=== PATIENT | female | born 1995 | race African-American/Black ===

== ENCOUNTER → 2017-03-03 | Outpatient (CLI) | payer OTHER ==
[2016-01-25 14:57] VITALS: BP 126/68
[~2017-03-03] MED LIST: CIPR500T94 PO; PHEN100T91 PO; SULF1TAB24 PO
--- NOTE | 2017-03-03 14:20 | RAD ---
OB ultrasound History: Supervision of first normal . Comparison: None. Findings: There is a single intrauterine gestation in breech presentation. The placenta is anterior in location without evidence of placenta previa. The amount of amniotic fluid appears appropriate. Amniotic fluid index is 18.5 cm. Cervix is not well visualized. Biometric data is as follows: BPD = 6.19 cm for 25 weeks 1 days. HC = 22.72 cm for 24 weeks 5 days. AC = 20.17 cm for 24 weeks 6 days. FL = 4.50 cm for 24 weeks 6 days. HC/AC ratio = 1.13, within normal limits. Overall, the average ultrasound age age is 24 weeks 6 days for an estimated date of delivery of 06/17/2017. The estimated date of delivery provided by the last menstrual period is 06/26/2017. Estimated weight is 740 +/- 110 grams which is at 61st percentile. A 4 chamber heart is identified with positive cardiac activity. Heart is appropriate in size and location. The estimated heart rate is 152 beats per minute. Bilateral upper and lower extremities are identified. There is a three-vessel cord with cord insertion visualized. stomach and urinary bladder are identified. Both kidneys are seen. The spine and brain are unremarkable. No gross anatomic abnormalities are identified. gender appears male. Impression: 1. Single live intrauterine gestation in breech presentation with average ultrasound age of 24 weeks 6 days. No anatomic abnormalities are identified.
== END | disposition home or self-care (01) ==
LOC: US 12:03
PROVIDERS: ATTEND Obstetrics & Gynecology
DX: O09.90 Supervision of high risk pregnancy, unspecified, unspecified trimester (principal); O26.849 Uterine size-date discrepancy, unspecified trimester; Z3A.24 24 weeks gestation of pregnancy
CPT/HCPCS: 76805

== ENCOUNTER 2017-04-11 17:38 | Observation (INO) | payer OTHER ==
[2016-01-25 14:57] VITALS: BP 126/68
[~2017-04-11] VITALS: Ht 171.4 cm; Wt 104.3 kg
== END 2017-04-11 18:55 | disposition home or self-care (01) ==
LOC: 3 SO LND 17:38
PROVIDERS: ADMIT Obstetrics & Gynecology; ATTEND Obstetrics & Gynecology
DX: O26.893 Other specified pregnancy related conditions, third trimester (principal); R10.2 Pelvic and perineal pain; M54.9 Dorsalgia, unspecified; Z3A.29 29 weeks gestation of pregnancy
CPT/HCPCS: G0378; G0379

== ENCOUNTER 2017-05-17 06:07 | Observation (INO) | payer OTHER ==
[2016-01-25 14:57] VITALS: BP 126/68
[~2017-05-17 06:07] MED LIST changes: +PHEN-443 PO; -PHEN100T91 PO
[2017-05-17] MEDS ORDERED: IV RINGERS,LACTATED 1000ML 1,000 ML IV SCH (06:11)
[2017-05-17 06:50] LABS: BARBITURATES NEG (NEG); BENZODIAZEPINES NEG (NEG); CANNABINOIDS NEG (NEG); COCAINE NEG (NEG); METHADONE NEG (NEG); OPIATES NEG (NEG); PHENCYCLIDINE NEG (NEG)
[2017-05-17 07:29] LABS: BILIRUBIN,URINE NEGATIVE (NEG); GLUCOSE,URINE NEGATIVE (NEG); NITRITE,URINE NEGATIVE (NEG); PH,URINE 6.5; PROTEIN,URINE NEGATIVE (NEG-TRACE); UROBILINOGEN,URINE 0.2 mg/dL (0.2 mg/dL)
[2017-05-17 08:08] LABS: BACTERIA,URINE 0 /HPF (0-FEW); RBC,URINE 0 /HPF (0-2); SQUAMOUS EPITHELIAL CELL,UR FEW /LPF; WBC,URINE 0 /HPF (0-4)
== END 2017-05-17 08:51 | disposition home or self-care (01) ==
LOC: INTOOBSV 06:07 → 3 SO LND 06:07
PROVIDERS: ADMIT Obstetrics & Gynecology; ATTEND Obstetrics & Gynecology
DX: O26.893 Other specified pregnancy related conditions, third trimester (principal); M54.9 Dorsalgia, unspecified; R07.9 Chest pain, unspecified; M79.606 Pain in leg, unspecified; Z3A.34 34 weeks gestation of pregnancy
CPT/HCPCS: 81001; G0378; G0379; G0481

== ENCOUNTER 2018-02-23 11:15 | Emergency (ER) | payer BC, OTHER ==
[2018-02-23 11:38] LABS: URINE HCG POC HCG POSITIVE (Negative)
[2018-02-23 12:22] LABS: ADD MAN DIFF? NO
[2018-02-23 12:26] LABS: BASO # 0.1 x10^3/uL (0.0-0.2); BASO % 1 % (0-3); EOS # 0.1 x10^3/uL (0.0-0.7); EOS % 1 % (0-3); HEMATOCRIT 41.1 % (36.0-47.0); HEMOGLOBIN 13.6 g/dL (12.0-15.5); LYMPH # 1.9 x10^3/uL (1.0-4.8); LYMPH % 24 % (24-48); MEAN CORPUSCULAR HEMOGLOBIN 29 pg (25-35); MEAN CORPUSCULAR HGB CONC 33 g/dL (31-37); MEAN CORPUSCULAR VOLUME 87 fL (79-100); MONO # 0.5 x10^3/uL (0.0-1.1); MONO % 7 % (0-9); NEUT # 5.5 x10^3uL (1.8-7.7); NEUT % 68 % (31-73); PLATELET COUNT 333 x10^3/uL (140-400); RED BLOOD COUNT 4.75 x10^6/uL (3.50-5.40); RED CELL DISTRIBUTION WIDTH 15.1 % (11.5-14.5); WHITE BLOOD COUNT 8.1 x10^3/uL (4.0-11.0)
== END 2018-02-23 14:28 | disposition home or self-care (01) ==
LOC: ER 11:15
DX: O20.0 Threatened abortion (principal); O99.340 Other mental disorders complicating pregnancy, unspecified trimester; F32.9 Major depressive disorder, single episode, unspecified; O99.331 Smoking (tobacco) complicating pregnancy, first trimester; F17.210 Nicotine dependence, cigarettes, uncomplicated; Z3A.01 Less than 8 weeks gestation of pregnancy
CPT/HCPCS: 36415; 76801; 76817; 81025; 84702; 85025; 99285-25

== ENCOUNTER 2018-03-02 21:01 | Emergency (ER) | payer BC ==
[2018-03-02 21:15] LABS: URINE HCG POC HCG POSITIVE (Negative)
[2018-03-02 21:22] LABS: BILIRUBIN,URINE NEGATIVE (NEG); CLARITY,URINE CLOUDY; COLOR,URINE YELLOW; GLUCOSE,URINE NEGATIVE (NEG); NITRITE,URINE NEGATIVE (NEG); PH,URINE 6.5; PROTEIN,URINE NEGATIVE (NEG-TRACE)
[2018-03-02 21:27] LABS: BACTERIA,URINE MANY /HPF (0-FEW); RBC,URINE 0 /HPF (0-2); SQUAMOUS EPITHELIAL CELL,UR MANY /LPF; TRICHOMONAS,URINE PRESENT; WBC,URINE 20-40 /HPF (0-4)
[2018-03-02 21:28] LABS: BARBITURATES NEG (NEG); BENZODIAZEPINES NEG (NEG); CANNABINOIDS POS (NEG); COCAINE NEG (NEG); METHADONE NEG (NEG); OPIATES NEG (NEG); PHENCYCLIDINE NEG (NEG)
[2018-03-02 21:31] LABS: AMPHETAMINE/METHAMPHETAMINE NEG (NEG); ETHANOL, URINE NEG (NEG)
[2018-03-02 21:47] LABS: ADD MAN DIFF? NO
[2018-03-02 21:49] LABS: BASO # 0.1 x10^3/uL (0.0-0.2); BASO % 1 % (0-3); EOS # 0.1 x10^3/uL (0.0-0.7); EOS % 1 % (0-3); HEMATOCRIT 40.7 % (36.0-47.0); HEMOGLOBIN 13.5 g/dL (12.0-15.5); LYMPH # 2.7 x10^3/uL (1.0-4.8); LYMPH % 25 % (24-48); MEAN CORPUSCULAR HEMOGLOBIN 29 pg (25-35); MEAN CORPUSCULAR HGB CONC 33 g/dL (31-37); MEAN CORPUSCULAR VOLUME 87 fL (79-100); MONO # 0.9 x10^3/uL (0.0-1.1); MONO % 9 % (0-9); NEUT % 65 % (31-73); PLATELET COUNT 308 x10^3/uL (140-400); RED BLOOD COUNT 4.67 x10^6/uL (3.50-5.40); RED CELL DISTRIBUTION WIDTH 14.6 % (11.5-14.5); WHITE BLOOD COUNT 10.9 x10^3/uL (4.0-11.0)
[2018-03-02 22:01] LABS: ANION GAP 10 (6-14); BLOOD UREA NITROGEN 5 mg/dL (7-20); BUN/CREATININE RATIO 7 (6-20); CALCIUM 9.3 mg/dL (8.5-10.1); CARBON DIOXIDE 25 mmol/L (21-32); CHLORIDE 103 mmol/L (98-107); CREATININE 0.7 mg/dL (0.6-1.0); GFR 125.5; GLUCOSE 77 mg/dL (70-99); POTASSIUM 3.6 mmol/L (3.5-5.1); SODIUM 138 mmol/L (136-145)
[2018-03-02 22:05] LABS: ACETAMIN < 2 mcg/ml (10-30); ETHANOL < 10 mg/dL (0-10); SALIC < 2.8 mg/dL (2.8-20.0)
[2018-03-02 22:11] LABS: ALBUMIN 3.6 g/dL (3.4-5.0); ALK PHOS 81 U/L (46-116); ALT (SGPT) 21 U/L (14-59); AST (SGOT) 17 U/L (15-37); TOTAL BILIRUBIN 0.4 mg/dL (0.2-1.0); TOTAL PROTEIN 7.3 g/dL (6.4-8.2)
[2018-03-02 22:13] LABS: THYROID STIM HORMONE (TSH) 1.486 uIU/mL (0.358-3.74)
[2018-03-03] MEDS: ONDANSETRON ODT 4 MG TAB.RAPDIS. PO (00:03)
[2018-03-03] MEDS: metroNIDAZOLE 500 MG TABLET PO (00:03)
== END 2018-03-03 00:15 | disposition short-term general hospital (02) ==
LOC: ER 03-03 00:15
DX: O26.891 Other specified pregnancy related conditions, first trimester (principal); R45.851 Suicidal ideations; O98.311 Other infections with a predominantly sexual mode of transmission complicating pregnancy, first trimester; A59.9 Trichomoniasis, unspecified; O23.41 Unspecified infection of urinary tract in pregnancy, first trimester; O99.341 Other mental disorders complicating pregnancy, first trimester; F41.9 Anxiety disorder, unspecified; F32.9 Major depressive disorder, single episode, unspecified; Z3A.01 Less than 8 weeks gestation of pregnancy
CPT/HCPCS: 36415; 80053; 80307; 80329; 81001; 81025; 84443; 85025; 87086; 99285; G0480; Q0162

== ENCOUNTER 2018-03-14 14:40 | Emergency (ER) | payer BC ==
[2018-03-14] MEDS: IV NORMAL SALINE 1000ML BAG 1,000 ML IV (16:06)
[2018-03-14] MEDS: ONDANSETRON PF 4 MG/2 ML VIAL. IV (16:07)
[2018-03-14] MEDS: fentaNYL PF VIAL 100 MCG/2 ML VIAL IV (16:08)
[2018-03-14 16:14] LABS: ADD MAN DIFF? NO
[2018-03-14 16:16] LABS: BASO # 0.1 x10^3/uL (0.0-0.2); BASO % 1 % (0-3); EOS # 0.1 x10^3/uL (0.0-0.7); EOS % 1 % (0-3); HEMATOCRIT 38.3 % (36.0-47.0); HEMOGLOBIN 12.9 g/dL (12.0-15.5); LYMPH % 23 % (24-48); MEAN CORPUSCULAR HEMOGLOBIN 29 pg (25-35); MEAN CORPUSCULAR HGB CONC 34 g/dL (31-37); MEAN CORPUSCULAR VOLUME 86 fL (79-100); MONO % 8 % (0-9); NEUT # 8.8 x10^3uL (1.8-7.7); NEUT % 68 % (31-73); PLATELET COUNT 283 x10^3/uL (140-400); RED BLOOD COUNT 4.44 x10^6/uL (3.50-5.40); RED CELL DISTRIBUTION WIDTH 14.5 % (11.5-14.5)
[2018-03-14 16:22] LABS: BILIRUBIN,URINE NEGATIVE (NEG); CLARITY,URINE CLEAR; COLOR,URINE YELLOW; GLUCOSE,URINE NEGATIVE (NEG); NITRITE,URINE NEGATIVE (NEG); PROTEIN,URINE NEGATIVE (NEG-TRACE); UROBILINOGEN,URINE 0.2 mg/dL (0.2 mg/dL)
[2018-03-14 16:28] LABS: ANION GAP 10 (6-14); BLOOD UREA NITROGEN 6 mg/dL (7-20); BUN/CREATININE RATIO 9 (6-20); CALCIUM 8.8 mg/dL (8.5-10.1); CARBON DIOXIDE 24 mmol/L (21-32); CHLORIDE 104 mmol/L (98-107); CREATININE 0.7 mg/dL (0.6-1.0); GFR 125.5; GLUCOSE 75 mg/dL (70-99); POTASSIUM 3.6 mmol/L (3.5-5.1); SODIUM 138 mmol/L (136-145)
[2018-03-14 16:34] LABS: ALBUMIN 3.2 g/dL (3.4-5.0); ALBUMIN/GLOBULIN RATIO 0.9 (1.0-1.7); ALK PHOS 80 U/L (46-116); ALT (SGPT) 22 U/L (14-59); AST (SGOT) 12 U/L (15-37); TOTAL BILIRUBIN 0.3 mg/dL (0.2-1.0); TOTAL PROTEIN 6.9 g/dL (6.4-8.2)
[2018-03-14 16:38] LABS: BACTERIA,URINE MANY /HPF (0-FEW); RBC,URINE 0 /HPF (0-2); SQUAMOUS EPITHELIAL CELL,UR MOD /LPF
== END 2018-03-14 19:44 | disposition home or self-care (01) ==
LOC: ER 14:40
DX: O26.891 Other specified pregnancy related conditions, first trimester (principal); R10.31 Right lower quadrant pain; R11.0 Nausea; O99.341 Other mental disorders complicating pregnancy, first trimester; F41.9 Anxiety disorder, unspecified; F32.9 Major depressive disorder, single episode, unspecified; O99.321 Drug use complicating pregnancy, first trimester; F12.10 Cannabis abuse, uncomplicated; Z3A.08 8 weeks gestation of pregnancy
CPT/HCPCS: 36415; 76705; 76801; 76817; 80053; 81001; 85025; 87086; 96361; 96374; 96375; 99285-25; J2405; J3010; J7030

== ENCOUNTER 2018-03-17 09:12 | Emergency (ER) | payer BC ==
[2018-03-17] MEDS ORDERED: 0.9 % SODIUM CHLORIDE 10 ML DISP.SYRIN. IV (10:15)
[2018-03-17 10:50] LABS: POC GLUCOSE 79 mg/dL (70-99)
[2018-03-17] MEDS: IV NORMAL SALINE 500ML BAG 500 ML IV (10:52)
[2018-03-17] MEDS: ONDANSETRON PF 4 MG/2 ML VIAL. IV (10:53)
[2018-03-17 11:00] LABS: ADD MAN DIFF? NO
[2018-03-17 11:06] LABS: BASO % 0 % (0-3); EOS # 0.1 x10^3/uL (0.0-0.7); EOS % 1 % (0-3); HEMATOCRIT 39.9 % (36.0-47.0); HEMOGLOBIN 13.2 g/dL (12.0-15.5); LYMPH % 19 % (24-48); MEAN CORPUSCULAR HEMOGLOBIN 29 pg (25-35); MEAN CORPUSCULAR HGB CONC 33 g/dL (31-37); MEAN CORPUSCULAR VOLUME 87 fL (79-100); MONO # 0.9 x10^3/uL (0.0-1.1); MONO % 9 % (0-9); NEUT # 7.2 x10^3uL (1.8-7.7); NEUT % 71 % (31-73); PLATELET COUNT 292 x10^3/uL (140-400); RED BLOOD COUNT 4.58 x10^6/uL (3.50-5.40); RED CELL DISTRIBUTION WIDTH 14.4 % (11.5-14.5); WHITE BLOOD COUNT 10.1 x10^3/uL (4.0-11.0)
[2018-03-17 11:24] LABS: ANION GAP 7 (6-14); BLOOD UREA NITROGEN 6 mg/dL (7-20); BUN/CREATININE RATIO 12 (6-20); CALCIUM 8.8 mg/dL (8.5-10.1); CARBON DIOXIDE 26 mmol/L (21-32); CHLORIDE 106 mmol/L (98-107); CREATININE 0.5 mg/dL (0.6-1.0); GLUCOSE 58 mg/dL (70-99); POTASSIUM 3.5 mmol/L (3.5-5.1); SODIUM 139 mmol/L (136-145)
[2018-03-17 11:30] LABS: ALBUMIN 3.2 g/dL (3.4-5.0); ALBUMIN/GLOBULIN RATIO 0.8 (1.0-1.7); ALK PHOS 81 U/L (46-116); ALT (SGPT) 22 U/L (14-59); AST (SGOT) 13 U/L (15-37); TOTAL BILIRUBIN 0.2 mg/dL (0.2-1.0)
== END 2018-03-17 13:32 | disposition home or self-care (01) ==
LOC: ER 09:12
DX: O20.0 Threatened abortion (principal); O26.891 Other specified pregnancy related conditions, first trimester; E16.2 Hypoglycemia, unspecified; R42 Dizziness and giddiness; R55 Syncope and collapse; F12.10 Cannabis abuse, uncomplicated; O99.331 Smoking (tobacco) complicating pregnancy, first trimester; F17.210 Nicotine dependence, cigarettes, uncomplicated; Z3A.08 8 weeks gestation of pregnancy
CPT/HCPCS: 36415; 76801; 80053; 82962; 83735; 85025; 93005; 96361; 96374; 99285-25; J2405; J7040

== ENCOUNTER 2018-03-21 16:38 | Emergency (ER) | payer BC ==
[2018-03-21] MEDS: ONDANSETRON ODT 4 MG TAB.RAPDIS. PO (16:59)
[2018-03-21] MEDS ORDERED: LIDOCAINE WITH 8.4% SOD BICARB 3 ML DISP.SYRIN. INJ (17:00)
[2018-03-21] MEDS: HYDROcodone/APAP 5/325MG 1 TAB TABLET PO (17:00)
== END 2018-03-21 18:00 | disposition home or self-care (01) ==
LOC: ER 18:00
DX: O9A.211 Injury, poisoning and certain other consequences of external causes complicating pregnancy, first trimester (principal); O99.341 Other mental disorders complicating pregnancy, first trimester; S82.841A Displaced bimalleolar fracture of right lower leg, initial encounter for closed fracture; O99.321 Drug use complicating pregnancy, first trimester; F12.10 Cannabis abuse, uncomplicated; F32.9 Major depressive disorder, single episode, unspecified; F41.9 Anxiety disorder, unspecified; Z3A.09 9 weeks gestation of pregnancy; W10.9XXA Fall (on) (from) unspecified stairs and steps, initial encounter; Y93.01 Activity, walking, marching and hiking; Y92.89 Other specified places as the place of occurrence of the external cause; Y99.8 Other external cause status
CPT/HCPCS: 29515; 73610; 99284; Q0162

== ENCOUNTER → 2018-06-08 | Outpatient (CLI) | payer OTHER | END | disposition home or self-care (01) | LOC: US 09:54 | DX: O26.842 Uterine size-date discrepancy, second trimester (principal); Z3A.22 22 weeks gestation of pregnancy | CPT/HCPCS: 76805 ==

== ENCOUNTER 2018-08-23 16:54 | Observation (INO) | payer OTHER ==
[~2018-08-23] VITALS: Ht 170.2 cm; Wt 100.2 kg
[~2018-08-23 16:54] MED LIST changes: +ACET325T9 PO; +AMOX1TAB61 PO; +ASPI-612 PO; +CEPH-264 PO; +CHOL100013 PO; +HYDR-2758 PO; +HYDR-971 PO; +HYDR25CA75 PO; +IBUP-1060 PO; +ONDA4TAB10 PO; +PREN1TAB13 PO
[2018-08-23] MEDS ORDERED: IV RINGERS,LACTATED 1000ML 1,000 ML IV SCH (17:10)
[2018-08-23 17:24] LABS: BILIRUBIN,URINE NEGATIVE (NEG); CLARITY,URINE CLEAR; COLOR,URINE YELLOW; NITRITE,URINE NEGATIVE (NEG); PH,URINE 6.5; PROTEIN,URINE NEGATIVE (NEG-TRACE); UROBILINOGEN,URINE 0.2 mg/dL (0.2 mg/dL)
[2018-08-23 17:35] LABS: BACTERIA,URINE MANY /HPF (0-FEW); RBC,URINE RARE /HPF (0-2); SQUAMOUS EPITHELIAL CELL,UR MANY /LPF
[2018-08-23] MEDS ORDERED: hydrOXYzine PAMOATE 25 MG CAPSULE PO PRN (18:30)
[2018-08-23 18:59] LABS: BASO # 0.1 x10^3/uL (0.0-0.2); BASO % 1 % (0-3); EOS # 0.1 x10^3/uL (0.0-0.7); EOS % 1 % (0-3); HEMATOCRIT 30.4 % (36.0-47.0); HEMOGLOBIN 10.1 g/dL (12.0-15.5); LYMPH % 22 % (24-48); MEAN CORPUSCULAR HEMOGLOBIN 27 pg (25-35); MEAN CORPUSCULAR HGB CONC 33 g/dL (31-37); MEAN CORPUSCULAR VOLUME 82 fL (79-100); MONO # 1.2 x10^3/uL (0.0-1.1); MONO % 9 % (0-9); NEUT # 9.7 x10^3uL (1.8-7.7); NEUT % 68 % (31-73); PLATELET COUNT 346 x10^3/uL (140-400); RED BLOOD COUNT 3.71 x10^6/uL (3.50-5.40); RED CELL DISTRIBUTION WIDTH 14.4 % (11.5-14.5); WHITE BLOOD COUNT 14.2 x10^3/uL (4.0-11.0)
[2018-08-23] MEDS: IV DEXTROSE 5%-LACT RINGERS 1,000 ML IV SCH ×2 (18:59→23:53)
[2018-08-23 19:17] LABS: ALBUMIN 2.9 g/dL (3.4-5.0); ALBUMIN/GLOBULIN RATIO 0.8 (1.0-1.7); CALCIUM 8.7 mg/dL (8.5-10.1); CREATININE 0.5 mg/dL (0.6-1.0); POTASSIUM 3.9 mmol/L (3.5-5.1); TOTAL BILIRUBIN 0.1 mg/dL (0.2-1.0); TOTAL PROTEIN 6.6 g/dL (6.4-8.2)
[2018-08-24 07:58] VITALS: BP 107/66
== END 2018-08-24 08:30 | disposition home or self-care (01) ==
LOC: 3 SO LND 16:54
PROVIDERS: ADMIT Obstetrics & Gynecology; ATTEND Obstetrics & Gynecology
DX: O62.9 Abnormality of forces of labor, unspecified (principal); Z3A.31 31 weeks gestation of pregnancy; Z79.899 Other long term (current) drug therapy
CPT/HCPCS: 36415; 80053; 81001; 82731; 85025; 87086; G0378; G0379; Q0177

== ENCOUNTER 2018-09-05 22:17 | Observation (INO) | payer OTHER ==
[2018-09-05] MEDS ORDERED: IV RINGERS,LACTATED 1000ML 1,000 ML IV PRN (22:30)
[2018-09-05 22:46] LABS: BILIRUBIN,URINE NEGATIVE (NEG); CLARITY,URINE CLEAR; COLOR,URINE YELLOW; NITRITE,URINE NEGATIVE (NEG); PROTEIN,URINE NEGATIVE (NEG-TRACE); UROBILINOGEN,URINE 0.2 mg/dL (0.2 mg/dL)
[2018-09-05 22:51] LABS: BACTERIA,URINE MODERATE /HPF (0-FEW)
[2018-09-05 22:52] LABS: AMPHETAMINE/METHAMPHETAMINE NEG (NEG); BARBITURATES NEG (NEG); BENZODIAZEPINES NEG (NEG); CANNABINOIDS NEG (NEG); COCAINE NEG (NEG); METHADONE NEG (NEG); OPIATES NEG (NEG); PHENCYCLIDINE NEG (NEG); SQUAMOUS EPITHELIAL CELL,UR MANY /LPF
== END 2018-09-06 00:14 | disposition home or self-care (01) ==
LOC: 3 SO LND 22:17
PROVIDERS: ADMIT Obstetrics & Gynecology; ATTEND Obstetrics & Gynecology
DX: O62.9 Abnormality of forces of labor, unspecified (principal); O26.893 Other specified pregnancy related conditions, third trimester; M54.9 Dorsalgia, unspecified; Z3A.33 33 weeks gestation of pregnancy
CPT/HCPCS: 80307; 81001; 87086; G0378; G0379; G0479

== ENCOUNTER 2018-09-13 08:26 | Observation (INO) | payer OTHER ==
[2018-09-13 09:04] LABS: BILIRUBIN,URINE NEGATIVE (NEG); CLARITY,URINE CLEAR; COLOR,URINE YELLOW; NITRITE,URINE NEGATIVE (NEG); PH,URINE 6.5; PROTEIN,URINE NEGATIVE (NEG-TRACE); UROBILINOGEN,URINE 0.2 mg/dL (0.2 mg/dL)
[2018-09-13 09:25] LABS: BACTERIA,URINE FEW /HPF (0-FEW); RBC,URINE 0 /HPF (0-2); SQUAMOUS EPITHELIAL CELL,UR MANY /LPF; WBC,URINE 0 /HPF (0-4)
[2018-09-13] MEDS: IV RINGERS,LACTATED 1000ML 1,000 ML IV SCH ×2 (09:48→10:37)
== END 2018-09-13 12:30 | disposition home or self-care (01) ==
LOC: 3 SO LND 08:26
PROVIDERS: ADMIT Obstetrics & Gynecology; ATTEND Obstetrics & Gynecology
DX: O99.89 Other specified diseases and conditions complicating pregnancy, childbirth and the puerperium (principal); M54.9 Dorsalgia, unspecified; Z3A.35 35 weeks gestation of pregnancy
CPT/HCPCS: 81001; 87086; G0378; G0379; J7120

== ENCOUNTER 2018-09-16 14:56 | Observation (INO) | payer OTHER ==
[2018-09-16] MEDS ORDERED: IV RINGERS,LACTATED 1000ML 1,000 ML IV SCH (15:00)
[2018-09-16] MEDS ORDERED: ACETAMINOPHEN 325 MG TABLET. PO PRN (15:00)
[2018-09-16 15:25] LABS: BILIRUBIN,URINE NEGATIVE (NEG); CLARITY,URINE CLEAR; COLOR,URINE YELLOW; NITRITE,URINE NEGATIVE (NEG); PH,URINE 7.5; PROTEIN,URINE NEGATIVE (NEG-TRACE); UROBILINOGEN,URINE 0.2 mg/dL (0.2 mg/dL)
[2018-09-16 16:00] LABS: BACTERIA,URINE MANY /HPF (0-FEW); RBC,URINE OCC /HPF (0-2); SQUAMOUS EPITHELIAL CELL,UR MOD /LPF
[2018-09-16 16:02] LABS: AMNIO PT NEGATIVE
--- NOTE | 2018-09-16 16:23 | RAD ---
EXAM: Obstetrics sonogram. HISTORY: Amniotic fluid index measurement. TECHNIQUE: Sonographic imaging of the abdomen was performed. COMPARISON: 06/08/2018. FINDINGS: There is a single intrauterine fetus in cephalic presentation with a heart rate of 152 bpm. The cervix is not seen. There is body motion. The amniotic fluid index is normal at 11.6 cm. There is a posterior placenta without evidence of placenta previa. The biparietal diameter is 8.61 cm, corresponding with 34 weeks and 5 days. The head circumference is 31.59 cm, corresponding with 35 weeks and 3 days. The abdominal circumference is 31.22 cm, corresponding with 35 weeks and 1 day. The femoral length is 7.00 cm, corresponding with 35 weeks and 6 days. The estimated weight based on ultrasound measurements is 2654 g. The estimated gestational age based on combined ultrasound measurements is 35 weeks and 2 days and the MICHAEL is 10/19/2018. The estimated weight is 38 percentile for gestational age based on LMP of 35 weeks and 6 days. IMPRESSION: 1. Single intrauterine fetus with an estimated gestational age based on ultrasound measurements of 35 weeks and 2 days and heart rate of 152 bpm. 2. Normal BRAYDEN of 11.6 cm. Electronically signed by: Mary Schaffer MD (09/16/2018 4:19 PM) [id number]
== END 2018-09-16 16:25 | disposition home or self-care (01) ==
LOC: 3 SO LND 14:56
PROVIDERS: ADMIT Obstetrics & Gynecology; ATTEND Obstetrics & Gynecology
DX: O42.113 Preterm premature rupture of membranes, onset of labor more than 24 hours following rupture, third trimester (principal); Z3A.35 35 weeks gestation of pregnancy
CPT/HCPCS: 36415; 76815; 81001; 84112; 87086; 87653; G0379

== ENCOUNTER 2018-09-25 18:21 | Observation (INO) | payer OTHER ==
[2018-09-25] MEDS ORDERED: IV RINGERS,LACTATED 1000ML 1,000 ML IV SCH (18:45)
[2018-09-25 19:02] LABS: BILIRUBIN,URINE NEGATIVE (NEG); CLARITY,URINE CLEAR; COLOR,URINE YELLOW; NITRITE,URINE NEGATIVE (NEG); PH,URINE 7.5; PROTEIN,URINE NEGATIVE (NEG-TRACE)
[2018-09-25 19:09] LABS: BARBITURATES NEG (NEG); BENZODIAZEPINES NEG (NEG); CANNABINOIDS NEG (NEG); COCAINE NEG (NEG); METHADONE NEG (NEG); OPIATES NEG (NEG); PHENCYCLIDINE NEG (NEG)
[2018-09-25 19:13] LABS: AMPHETAMINE/METHAMPHETAMINE NEG (NEG)
[2018-09-25 19:14] LABS: BACTERIA,URINE FEW /HPF (0-FEW); RBC,URINE 0 /HPF (0-2); SQUAMOUS EPITHELIAL CELL,UR MOD /LPF
[2018-09-25] MEDS ORDERED: hydrOXYzine PAMOATE 25 MG CAPSULE PO ONE (20:00)
== END 2018-09-25 20:30 | disposition home or self-care (01) ==
LOC: 3 SO LND 18:21
PROVIDERS: ADMIT Obstetrics & Gynecology; ATTEND Obstetrics & Gynecology
DX: O62.9 Abnormality of forces of labor, unspecified (principal); Z3A.36 36 weeks gestation of pregnancy; Z79.899 Other long term (current) drug therapy
CPT/HCPCS: 80307; 81001; 87086; G0378; G0379; Q0177; G0479

== ENCOUNTER 2018-10-07 20:18 | Observation (INO) | payer OTHER ==
[2018-10-07] MEDS ORDERED: IV RINGERS,LACTATED 1000ML 1,000 ML IV SCH (20:22)
[2018-10-07] MEDS ORDERED: ACETAMINOPHEN 325 MG TABLET. PO PRN (20:30)
[2018-10-07] MEDS ORDERED: ONDANSETRON PF 4 MG/2 ML VIAL. IV PRN (20:30)
[2018-10-07 20:51] LABS: BILIRUBIN,URINE NEGATIVE (NEG); CLARITY,URINE CLEAR; COLOR,URINE YELLOW; NITRITE,URINE NEGATIVE (NEG); PROTEIN,URINE NEGATIVE (NEG-TRACE); UROBILINOGEN,URINE 0.2 mg/dL (0.2 mg/dL)
[2018-10-07 20:57] LABS: BARBITURATES NEG (NEG); BENZODIAZEPINES NEG (NEG); CANNABINOIDS NEG (NEG); COCAINE NEG (NEG); METHADONE NEG (NEG); OPIATES NEG (NEG); PHENCYCLIDINE NEG (NEG); RBC,URINE OCC /HPF (0-2)
[2018-10-07 20:58] LABS: BACTERIA,URINE MANY /HPF (0-FEW); SQUAMOUS EPITHELIAL CELL,UR MANY /LPF; YEAST,URINE PRESENT /HPF
[2018-10-07 21:01] LABS: AMPHETAMINE/METHAMPHETAMINE NEG (NEG)
== END 2018-10-07 22:52 | disposition home or self-care (01) ==
LOC: 3 SO LND 20:18
PROVIDERS: ADMIT Obstetrics & Gynecology; ATTEND Obstetrics & Gynecology
DX: O62.9 Abnormality of forces of labor, unspecified (principal); O99.89 Other specified diseases and conditions complicating pregnancy, childbirth and the puerperium; M54.9 Dorsalgia, unspecified; Z3A.38 38 weeks gestation of pregnancy
CPT/HCPCS: 80307; 81001; 87086; G0378; G0379

== ENCOUNTER 2019-02-15 16:35 | Emergency (ER) | payer SELFPAY ==
[2018-10-17 16:00] VITALS: BP 102/58
[~2019-02-15 16:35] MED LIST changes: -HYDR-2758 PO; +HYDR-2761 PO; +HYDR-3164 PO; -HYDR-971 PO; +NAPR-514 PO
== END 2019-02-15 19:00 | disposition left against medical advice (07) ==
LOC: ER 16:35
DX: R10.9 Unspecified abdominal pain (principal); R19.7 Diarrhea, unspecified; R11.11 Vomiting without nausea; Z53.21 Procedure and treatment not carried out due to patient leaving prior to being seen by health care provider

== ENCOUNTER 2019-03-02 11:08 | Emergency (ER) | payer SELFPAY ==
[~2019-03-02] VITALS: Ht 172.7 cm; Wt 99.8 kg
[2019-03-02 11:46] VITALS: BP 112/67
--- NOTE | 2019-03-02 12:22 | RAD ---
EXAM: Right ankle, 3 views. HISTORY: Trauma. COMPARISON: 02/21/2018 FINDINGS: 3 views of the right ankle are obtained. There is internal fixation of healed bimalleolar fractures in anatomic alignment. No acute fracture is seen. The ankle mortise is intact. There is no osteochondral lesion. There is a stable tiny ossicle along the anterior talus. IMPRESSION: No acute osseous finding. Electronically signed by: Mary Schaffer MD (03/02/2019 12:20 PM) [place] [id number]
--- NOTE | 2019-03-02 12:48 | PHYS DOC ---
Past Medical History Past Medical History: Anxiety, Depression Past Surgical History: Other Additional Past Surgical Histo: surgical , oral surgery Alcohol Use: None Drug Use: Marijuana Adult General Chief Complaint Chief Complaint: ANKLE PROBLEM HPI HPI Patient is a 23 year old female with who presents to the ED today complaining of 9 out of 10 right anterior ankle pain that began yesterday after she accidentally dropped a couch on her right ankle while moving it. Patient describes the pain as throbbing and intermittent worse on weight bearing though she is able to ambulate with no difficulties. She states she has not taken anything specifically to relieve the pain. Review of Systems Review of Systems Constitutional: Denies fever or chills [] Musculoskeletal: Reports right ankle pain Integument: Denies rash or skin lesions [] Neurologic: Denies headache, focal weakness or sensory changes [] All other systems were reviewed and found to be within normal limits, except as documented in this note. Allergies Allergies Allergies Coded Allergies Type Severity Reaction Last Updated Verified No Known Drug Allergies 04/25/14 No Physical Exam Physical Exam Constitutional: Well developed, well nourished, no acute distress, non-toxic appearance. [] Skin: Warm, dry, no erythema, no rash. [] Back: No tenderness, no CVA tenderness. [] Extremities: Right medial ankle with an old healed surgical incision. Tenderness on palpation of the right anterior ankle. Full range of motion to the right ankle. Full range of motion to the right toes. +2 right pedal pulse. Cap refill less than 2 seconds the right toes. Neurologic: Alert and oriented X 3, normal motor function, normal sensory function, no focal deficits noted. [] Psychologic: Affect normal, judgement normal, mood normal. [] Current Patient Data Vital Signs Vital Signs Date Time Temp Pulse Resp B/P (MAP) Pulse Ox O2 Delivery O2 Flow Rate FiO2 03/02/19 11:46 98.0 90 18 112/67 (82) 99 Room Air 98.0 EKG EKG [] Radiology/Procedures Radiology/Procedures []PROCEDURE: ANKLE RIGHT 3V EXAM: Right ankle, 3 views. HISTORY: Trauma. COMPARISON: 02/21/2018 FINDINGS: 3 views of the right ankle are obtained. There is internal fixation of healed bimalleolar fractures in anatomic alignment. No acute fracture is seen. The ankle mortise is intact. There is no osteochondral lesion. There is a stable tiny ossicle along the anterior talus. IMPRESSION: No acute osseous finding. Electronically signed by: Mary Yang MD (03/02/2019 12:20 PM) [facility] DICTATED and SIGNED BY: MARY YANG MD DATE: 03/02/19 1220 Course & Med Decision Making Course & Med Decision Making Pertinent Labs and Imaging studies reviewed. (See chart for details) [This is a 22-year-old female patient presenting to the ED today with right ankle pain that began yesterday after Pereira fell on her ankle. Right ankle x- rays interpreted by radiologist are negative for any acute findings. Ice elevation encouraged. OTC pain relievers. Follow-up with orthopedic doctor in 1- 2 weeks if pain continues. Dragon Disclaimer Dragon Disclaimer This electronic medical record was generated, in whole or in part, using a voice recognition dictation system. Departure Departure Impression: Primary Impression: Contusion of right ankle Disposition: HOME, SELF-CARE Condition: STABLE Referrals: NO PCP (PCP) YOVANY BUTLER MD follow up in 1 week Patient Instructions: Contusion, [id number] Additional Instructions: You were evaluated in the emergency room for right ankle contusion. Your right ankle x-rays are negative for any acute findings. Try to ice and elevate the extremity. Follow-up with your doctor in 1-2 weeks. You can also follow-up with orthopedic doctor as needed. Take [id number] pain relievers as needed for pain. Problem Qualifiers Primary Impression: Contusion of right ankle Encounter type: initial encounter Qualified Codes: S90.01XA - Contusion of right ankle, initial encounter CHRISTEN SMITH GUTTER HANGER Mar 02, 2019 12:48
== END 2019-03-02 12:57 | disposition home or self-care (01) ==
LOC: ER 11:08
DX: S90.01XA Contusion of right ankle, initial encounter (principal); F12.10 Cannabis abuse, uncomplicated; W20.8XXA Other cause of strike by thrown, projected or falling object, initial encounter; Y93.89 Activity, other specified; Y92.89 Other specified places as the place of occurrence of the external cause; Y99.8 Other external cause status
CPT/HCPCS: 73610; 99283

== ENCOUNTER 2019-04-11 18:14 | Emergency (ER) | payer OTHER, SELFPAY ==
[~2019-04-11] VITALS: Ht 170.2 cm; Wt 96.0 kg
[2019-04-11 18:24] VITALS: BP 144/81
[2019-04-11] MEDS ORDERED: BENZ100C PO (18:50)
[2019-04-11] MEDS ORDERED: AMOX500C PO (18:50)
--- NOTE | 2019-04-11 18:50 | PHYS DOC ---
Past Medical History Past Medical History: Anxiety, Depression (MAGDI ROLLINS APRN) Past Surgical History: Other Additional Past Surgical Histo: surgical , oral surgery, right ankle fracture repair (MAGDI ROLLINS APRN) Additional Information: quit smoking 2 weeks ago Alcohol Use: None Drug Use: None (MAGDI ROLLINS APRN) Adult General Chief Complaint Chief Complaint: SORE THROAT HPI HPI Patient is a 23 year old female presents with sore throat since yesterday. Associated symptoms include a cough that started last night. Also has runny nose and congestion. Reports pain as 9 out of 10 character the character is "raw". Has tried robitussin, throat spray, cough drop, and drank calamine with elderberry in an attempt to help symptoms at home. (MAGDI ROLLINS APRN) Review of Systems Review of Systems Constitutional: Denies fever or chills [] Eyes: Denies change in visual acuity, redness, or eye pain [] HENT: Reports nasal congestion or sore throat [] Respiratory: Reports cough but denies shortness of breath [] Cardiovascular: No additional information not addressed in HPI [] GI: Denies abdominal pain, nausea, vomiting, bloody stools or diarrhea [] : Denies dysuria or hematuria [] Musculoskeletal: Denies back pain or joint pain [] Integument: Denies rash or skin lesions [] Neurologic: Denies headache, focal weakness or sensory changes [] Endocrine: Denies polyuria or polydipsia [] Complete systems were reviewed and found to be within normal limits, except as documented in this note. (MAGDI ROLLINS APRN) Allergies Allergies Allergies Coded Allergies Type Severity Reaction Last Updated Verified No Known Drug Allergies 04/25/14 No (MAGDI PACK DO) Physical Exam Physical Exam Constitutional: Well developed, well nourished, no acute distress, non-toxic appearance. [] HENT: Normocephalic, atraumatic, bilateral external ears normal, oropharynx moist, 2+/4 tonsils, uvula is midline, pebblestoning with erythematous look to tonsils, nose normal. [] Eyes: PERRLA, EOMI, conjunctiva normal, no discharge. [] Neck: Normal range of motion, no tenderness, supple, no stridor. [] Cardiovascular:Heart rate regular rhythm, no murmur [] Lungs & Thorax: Bilateral breath sounds clear to auscultation [] Abdomen: Bowel sounds normal, soft, no tenderness, no masses, no pulsatile masses. [] Skin: Warm, dry, no erythema, no rash. [] Extremities: No tenderness, no cyanosis, no clubbing, ROM intact, no edema. [] Neurologic: Alert and oriented X 3, normal motor function, normal sensory function, no focal deficits noted. [] Psychologic: Affect normal, judgement normal, mood normal. [] (MGADI ROLLINS APRN) Current Patient Data Vital Signs Vital Signs Date Time Temp Pulse Resp B/P (MAP) Pulse Ox O2 Delivery O2 Flow Rate FiO2 04/11/19 18:24 99.2 107 18 144/81 (102) 99 Room Air 99.2 (MAGDI PACK DO) Lab Values Laboratory Tests Test 04/11/19 18:30 Group A Streptococcus Rapid Positive (NEGATIVE) (MAGDI PACK DO) EKG EKG [] (MAGDI ROLLINS APRN) Radiology/Procedures Radiology/Procedures [] (MAGDI ROLLINS APRN) Course & Med Decision Making Course & Med Decision Making Pertinent Labs and Imaging studies reviewed. (See chart for details) Will order strep throat on patient. Positive strep. Will d/c on cough medication and augmentin. (MAGDI ROLLINS APRN) Dragon Disclaimer Dragon Disclaimer This electronic medical record was generated, in whole or in part, using a voice recognition dictation system. (MAGDI ROLLINS APRN) Departure Departure Impression: Primary Impression: Strep throat Disposition: 01 HOME, SELF-CARE Condition: STABLE Referrals: NO PCP (PCP) Patient Instructions: Strep Throat, Group A Streptococcus Additional Instructions: Follow up as needed. Take all of antibiotic. Scripts Benzonatate (TESSALON PERLE) 100 Mg Capsule 1 CAP PO TID PRN for COUGH, #21 CAP Prov: MAGDI ROLLINS APRN 04/11/19 Amoxicillin (AMOXICILLIN) 500 Mg Capsule 500 MG PO BID for 10 Days, #20 CAP Prov: MAGDI ROLLINS APRN 04/11/19 Attending Signature Attending Signature I have reviewed the PA/PUBLIC HEALTH DIRECTOR's note and plan of care. I was available for consultation as needed during the patient's visit in the emergency department. I agree with the clinical impression, plan, and disposition. (MAGDI PACK DO) MAGDI ROLLINS APRN April 11, 2019 18:50 AMGDI PACK DO April 13, 2019 01:51
== END 2019-04-11 18:56 | disposition home or self-care (01) ==
LOC: ER 18:14
DX: J02.0 Streptococcal pharyngitis (principal); B95.0 Streptococcus, group A, as the cause of diseases classified elsewhere; F41.9 Anxiety disorder, unspecified; F32.9 Major depressive disorder, single episode, unspecified; Z87.891 Personal history of nicotine dependence
CPT/HCPCS: 87880; 99283

== ENCOUNTER 2019-05-15 22:35 | Emergency (ER) | payer SELFPAY ==
[~2019-05-15] VITALS: Ht 170.2 cm; Wt 99.8 kg
[~2019-05-15 22:35] MED LIST changes: +AMOX500C PO; +BENZ100C PO
[2019-05-15 22:40] VITALS: BP 105/57
--- NOTE | 2019-05-15 23:08 | PHYS DOC ---
Past Medical History Past Medical History: Anxiety, Depression (ELIF CARY APRN) Past Surgical History: Other Additional Past Surgical Histo: surgical , oral surgery, right ankle fracture repair (ELIF CARY APRN) Alcohol Use: None Drug Use: None (ELIF CARY APRN) Adult General Chief Complaint Chief Complaint: VAGINAL PROBLEM HPI HPI Patient is a 23 year old AA female who presents to the emergency department with complaints of vaginal bleeding after having rough intercourse earlier this evening. Patient denies the use of any toys or metal objects. States the bleeding has been light. Her LMP was in January, she denies any chance, states her cycle is suppressed with her BCP. She denies any abdominal pain or back pain. (ELIF CARY APRN) Review of Systems Review of Systems Constitutional: Denies fever or chills [] GI: Denies abdominal pain : See HPI Musculoskeletal: Denies back pain Integument: Denies rash or skin lesions [] Neurologic: Denies headache, focal weakness or sensory changes [] All other systems were reviewed and found to be within normal limits, except as documented in this note. (ELIF CARY APRN) Allergies Allergies Allergies Coded Allergies Type Severity Reaction Last Updated Verified No Known Drug Allergies 04/25/14 No (MAGDI PACK DO) Physical Exam Physical Exam Constitutional: Well developed, well nourished, no acute distress, non-toxic appearance. [] HENT: Normocephalic, atraumatic, bilateral external ears normal, nose normal. [] Eyes: conjunctiva normal, no discharge. [] Neck: Normal range of motion, no stridor. [] Lungs & Thorax: Respirations even and unlabored, no retractions, no respiratory distress Pelvic Exam: Hospitalist Physician present Fozia RN Abdomen: Nontender, soft External Genitalia: Normal Skin, small tear of labia noted at 6 o'clock of the vaginal opening Skin: Warm, dry, no erythema Extremities: No cyanosis, ROM intact Neurologic: Alert and oriented X 3, no focal deficits noted. [] Psychologic: Affect normal, judgement normal, mood normal. [] (ELIF CARY APRN) Current Patient Data Vital Signs Vital Signs Date Time Temp Pulse Resp B/P (MAP) Pulse Ox O2 Delivery O2 Flow Rate FiO2 05/15/19 22:40 97.9 81 16 105/57 (73) 97 Room Air 97.9 (MAGDI PACK DO) EKG EKG [] (ELIF CARY APRN) Radiology/Procedures Radiology/Procedures [] (ELIF CARY APRN) Course & Med Decision Making Course & Med Decision Making Pertinent Labs and Imaging studies reviewed. (See chart for details) Dx: labial tear Provided patient with. Bottle. Instructed patient to use duc bottle to irrigate with urination. Recommend warm sitz baths 2-3 times daily. Wear sanitary napkins while bleeding is active, avoid intercourse for the next week. Follow up with her primary care doctor if symptoms persist, return to the ER symptoms worsen. Patient verbalized an understanding of home care, medications, follow-up, and return to ED instructions and was in agreement with the plan of care. [] (ELIF CARY APRN) Dragon Disclaimer Dragon Disclaimer This electronic medical record was generated, in whole or in part, using a voice recognition dictation system. (ELIF CARY APRN) Departure Departure Impression: Primary Impression: Labial tear Disposition: 01 HOME, SELF-CARE Condition: STABLE Referrals: NO PCP (PCP) Patient Instructions: Episiotomy or Perineal Tear, Care After Additional Instructions: Use duc bottle to irrigate with urination. Recommend warm sitz baths 2-3 times daily. Wear sanitary napkins while bleeding is active, avoid intercourse for the next week. Follow up with your primary care doctor if symptoms persist, return to the ER symptoms worsen. Attending Signature Attending Signature I have reviewed the PA/STORE DIRECTOR's note and plan of care. I was available for consultation as needed during the patient's visit in the emergency department. I agree with the clinical impression, plan, and disposition. (MAGDI PACK DO) Problem Qualifiers Primary Impression: Labial tear Encounter type: initial encounter Qualified Codes: S31.41XA - Laceration without foreign body of vagina and vulva, initial encounter ELIF CARY APRN May 15, 2019 23:08 MAGDI PACK DO May 15, 2019 23:52
== END 2019-05-15 23:10 | disposition home or self-care (01) ==
LOC: ER 22:35
DX: S31.41XA Laceration without foreign body of vagina and vulva, initial encounter (principal); F32.9 Major depressive disorder, single episode, unspecified; F41.9 Anxiety disorder, unspecified; X58.XXXA Exposure to other specified factors, initial encounter; Y93.89 Activity, other specified; Y92.89 Other specified places as the place of occurrence of the external cause; Y99.8 Other external cause status
CPT/HCPCS: 99281; 99283

== ENCOUNTER 2019-07-01 15:17 | Emergency (ER) | payer SELFPAY ==
[~2019-07-01] VITALS: Ht 170.2 cm; Wt 95.3 kg
[2019-07-01 16:41] LABS: BILIRUBIN,URINE NEGATIVE (NEG); CLARITY,URINE CLEAR; COLOR,URINE YELLOW; NITRITE,URINE NEGATIVE (NEG); PH,URINE 7.5; PROTEIN,URINE NEGATIVE (NEG-TRACE)
[2019-07-01 16:44] LABS: FECAL OB PT NEGATIVE (NEG)
[2019-07-01] MEDS ORDERED: IV NORMAL SALINE 1000ML BAG 1,000 ML IV ONE (16:45)
[2019-07-01 16:53] LABS: BACTERIA,URINE MANY /HPF (0-FEW); RBC,URINE 0 /HPF (0-2); SQUAMOUS EPITHELIAL CELL,UR MANY /LPF; TRICHOMONAS,URINE PRESENT
[2019-07-01 17:14] LABS: BASO # 0.1 x10^3/uL (0.0-0.2); BASO % 1 % (0-3); EOS # 0.1 x10^3/uL (0.0-0.7); EOS % 1 % (0-3); HEMATOCRIT 42.9 % (36.0-47.0); HEMOGLOBIN 14.4 g/dL (12.0-15.5); LYMPH # 2.4 x10^3/uL (1.0-4.8); LYMPH % 21 % (24-48); MEAN CORPUSCULAR HEMOGLOBIN 29 pg (25-35); MEAN CORPUSCULAR HGB CONC 34 g/dL (31-37); MEAN CORPUSCULAR VOLUME 86 fL (79-100); MONO # 0.7 x10^3/uL (0.0-1.1); MONO % 6 % (0-9); NEUT % 71 % (31-73); PLATELET COUNT 354 x10^3/uL (140-400); RED BLOOD COUNT 5.01 x10^6/uL (3.50-5.40); RED CELL DISTRIBUTION WIDTH 15.6 % (11.5-14.5); WHITE BLOOD COUNT 11.2 x10^3/uL (4.0-11.0)
[2019-07-01 17:22] LABS: CALCIUM 9.1 mg/dL (8.5-10.1); CREATININE 0.6 mg/dL (0.6-1.0); GFR 148.6
[2019-07-01 17:28] LABS: ALBUMIN 3.8 g/dL (3.4-5.0); TOTAL BILIRUBIN 0.2 mg/dL (0.2-1.0); TOTAL PROTEIN 7.8 g/dL (6.4-8.2)
[2019-07-01 18:36] VITALS: BP 110/67
[2019-07-01] MEDS ORDERED: METR500T PO (19:22)
[2019-07-01] MEDS ORDERED: CEPH-264 PO (19:22)
--- NOTE | 2019-07-01 19:23 | PHYS DOC ---
Past Medical History Past Medical History: Anxiety, Depression (ELIF CARY APRN) Past Surgical History: Other Additional Past Surgical Histo: surgical , oral surgery, right ankle fracture repair (ELIF CARY APRN) Alcohol Use: Occasionally Drug Use: None (ELIF CARY APRN) Adult General Chief Complaint Chief Complaint: BLOODY STOOL HPI HPI Patient is a 23 year old AA female who presents to the emergency department with complaints of having diarrhea for the last week. Patient states that when she wiped after having a bowel movement today there is bright red blood on stool. She reports intermittent abdominal cramping, in her lower abdomen and currently rates her pain a 7 out of 10 on the pain scale. She denies any allevi ating or exacerbating factors. ROS Patient denies any fever, cough, shortness of breath, ear pain, sore throat, abnormal vaginal discharge, dysuria, increased urinary frequency, hematuria, low back pain, or constipation. She denies any history of hemorrhoids. All other ROS is neg unless otherwise noted in HPI. (ELIF CARY APRN) Review of Systems Review of Systems See Above (ELIF CARY APRN) Current Medications Current Medications Current Medications Medications (Trade) Dose Ordered Sig/Marcia Start Time Stop Time Status Last Admin Dose Admin Sodium Chloride 1,000 ml @ 1,000 mls/hr 1X ONCE 07/01/19 16:45 07/01/19 17:44 DC 07/01/19 16:45 1,000 MLS/HR (THOMAS REYNA MD) Allergies Allergies Allergies Coded Allergies Type Severity Reaction Last Updated Verified No Known Drug Allergies 04/25/14 No (THOMAS REYNA MD) Physical Exam Physical Exam See Above Constitutional: Well developed, well nourished, no acute distress, non-toxic appearance, obese. [] HENT: Normocephalic, atraumatic, bilateral external ears normal, oropharynx moist, no oral exudates, nose normal. [] Eyes: PERRLA, EOMI, conjunctiva normal, no discharge. [] Neck: Normal range of motion, no tenderness, supple, no stridor. [] Cardiovascular:Heart rate regular rhythm, no murmur [] Lungs & Thorax: Bilateral breath sounds clear to auscultation [] Abdomen: Bowel sounds normal, soft, no tenderness, no masses, no pulsatile masses, no guarding, no rebound tenderness. [] Skin: Warm, dry, no erythema, no rash. [] Back: No CVA tenderness. [] Extremities: No cyanosis, ROM intact, no edema. [] Neurologic: Alert and oriented X 3, no focal deficits noted. [] Psychologic: Affect normal, judgement normal, mood normal. [] (ELIF CARY APRN) Current Patient Data Vital Signs Vital Signs Date Time Temp Pulse Resp B/P (MAP) Pulse Ox O2 Delivery O2 Flow Rate FiO2 07/01/19 18:36 87 110/67 (81) 97 Room Air 07/01/19 16:07 98.3 16 98.3 (THOMAS REYNA MD) Lab Values Laboratory Tests Test 07/01/19 16:28 07/01/19 17:07 Urine Collection Type Unknown Urine Color Yellow Urine Clarity Clear Urine pH 7.5 Urine Specific [place] 1.010 Urine Protein Negative mg/dL (NEG-TRACE) Urine Glucose (UA) Negative mg/dL (NEG) Urine Ketones (Stick) Negative mg/dL (NEG) Urine Blood Negative (NEG) Urine Nitrite Negative (NEG) Urine Bilirubin Negative (NEG) Urine Urobilinogen Dipstick 1.0 mg/dL (0.2 mg/dL) Urine Leukocyte Esterase Large (NEG) Urine RBC 0 /HPF (0-2) Urine WBC 11-20 /HPF (0-4) Urine Squamous Epithelial Cells Many /LPF Urine Bacteria Many /HPF (0-FEW) Urine Trichomonas Present Stool Occult Blood Negative (NEG) White Blood Count 11.2 x10^3/uL (4.0-11.0) H Red Blood Count 5.01 x10^6/uL (3.50-5.40) Hemoglobin 14.4 g/dL (12.0-15.5) Hematocrit 42.9 % (36.0-47.0) Mean Corpuscular Volume 86 fL (79-100) Mean Corpuscular Hemoglobin 29 pg (25-35) Mean Corpuscular Hemoglobin Concent 34 g/dL (31-37) Red Cell Distribution Width 15.6 % (11.5-14.5) H Platelet Count 354 x10^3/uL (140-400) Neutrophils (%) (Auto) 71 % (31-73) Lymphocytes (%) (Auto) 21 % (24-48) L Monocytes (%) (Auto) 6 % (0-9) Eosinophils (%) (Auto) 1 % (0-3) Basophils (%) (Auto) 1 % (0-3) Neutrophils # (Auto) 8.0 x10^3/uL (1.8-7.7) H Lymphocytes # (Auto) 2.4 x10^3/uL (1.0-4.8) Monocytes # (Auto) 0.7 x10^3/uL (0.0-1.1) Eosinophils # (Auto) 0.1 x10^3/uL (0.0-0.7) Basophils # (Auto) 0.1 x10^3/uL (0.0-0.2) Sodium Level 144 mmol/L (136-145) Potassium Level 4.0 mmol/L (3.5-5.1) Chloride Level 107 mmol/L (98-107) Carbon Dioxide Level 28 mmol/L (21-32) Anion Gap 9 (6-14) Blood Urea Nitrogen 6 mg/dL (7-20) L Creatinine 0.6 mg/dL (0.6-1.0) Estimated GFR (Cockcroft-Gault) 148.6 BUN/Creatinine Ratio 10 (6-20) Glucose Level 81 mg/dL (70-99) Calcium Level 9.1 mg/dL (8.5-10.1) Magnesium Level 2.0 mg/dL (1.8-2.4) Total Bilirubin 0.2 mg/dL (0.2-1.0) Aspartate Amino Transferase (AST) 18 U/L (15-37) Alanine Aminotransferase (ALT) 24 U/L (14-59) Alkaline Phosphatase 89 U/L (46-116) Total Protein 7.8 g/dL (6.4-8.2) Albumin 3.8 g/dL (3.4-5.0) Albumin/Globulin Ratio 1.0 (1.0-1.7) Lipase 87 U/L (73-393) Laboratory Tests 07/01/19 17:07 Laboratory Tests 07/01/19 17:07 (THOMAS REYNA MD) EKG EKG [] (ELIF CARY APRN) Radiology/Procedures Radiology/Procedures [] (ELIF CARY APRN) Course & Med Decision Making Course & Med Decision Making Pertinent Labs and Imaging studies reviewed. (See chart for details) dx: Trichomonas, Urinary tract infection, diarrhea, bloody stools Patient is a 23-year-old -[place] female who presented to the emergency department with complaints of bright red blood on the toilet paper after she had a bowel movement today. Patient states she had diarrhea for approximately one week. Patient's abdomen is nontender on physical exam. Her CBC is normal, CMP was normal, UA revealed a urinary tract infection including trichomoniasis, her fecal occult stool is negative.. Patient was given 1 L of normal saline in the emergency department, she reported feeling better after these results. Prescriptions were written for Flagyl and Keflex. Patient was encouraged to increase clear fluids and avoid bladder irritants. Patient instructed to follow- up with primary care doctor if symptoms persist, return to the ER symptoms worsen. Patient verbalized an understanding of home care, medications, follow-up, and r eturn to ED instructions and was in agreement with the plan of care. [] (ELIF CARY APRN) Course & Med Decision Making Staff Physician Addendum: I was working in the ER during the course of this patient's visit. I was available for consultation as needed, but I was not directly involved in the care of this patient. (THOMAS REYNA MD) Dragon Disclaimer Dragon Disclaimer This electronic medical record was generated, in whole or in part, using a voice recognition dictation system. (ELIF CARY APRN) Departure Departure Impression: Primary Impression: Trichomoniasis Additional Impressions: UTI (urinary tract infection) Diarrhea Passage of bloody stools Disposition: HOME, SELF-CARE Condition: STABLE Referrals: NO PCP (PCP) Patient Instructions: Bloody Stools, [id number], Trichomoniasis-Brief, Urinary Tract Infection, [id number] Additional Instructions: Fill prescription(s) and use as directed. Avoid bladder irritants such as caffeine, carbonation, and spicy foods. Increase clear fluids. Make sure to notify all current sex partners of your trichomonas diagnosis for they need to be treated as well. Avoid having intercourse for at least 1 week after finishing treatment. Follow up with your primary care doctor if symptoms persist, return to the ER if symptoms worsen. Scripts Cephalexin (KEFLEX) 500 Mg Capsule 1 CAP PO BID, #14 CAP 0 Refills Prov: ELIF CARY APRN 07/01/19 Metronidazole (FLAGYL) 500 Mg Tablet 1 TAB PO BID for 7 Days, #14 TAB Prov: ELIF CARY APRN 07/01/19 Problem Qualifiers ELIF CARY APRN Jul 01, 2019 19:23 THOMAS REYNA MD Jul 01, 2019 20:06
== END 2019-07-01 19:30 | disposition home or self-care (01) ==
LOC: ER 15:17
DX: N39.0 Urinary tract infection, site not specified (principal); A59.9 Trichomoniasis, unspecified; R19.7 Diarrhea, unspecified; K92.1 Melena
CPT/HCPCS: 36415; 80053; 81001; 82274; 83690; 83735; 85025; 87086; 96360; 99284; J7030

== ENCOUNTER 2019-11-02 07:30 | Emergency (ER) | payer SELFPAY ==
[~2019-11-02] VITALS: Ht 172.7 cm; Wt 90.7 kg
[~2019-11-02 07:30] MED LIST changes: +METR500T PO
[2019-11-02] MEDS ORDERED: IV NORMAL SALINE 1000ML BAG 1,000 ML IV SCH (08:10)
[2019-11-02 08:13] LABS: BILIRUBIN,URINE NEGATIVE (NEG); COLOR,URINE YELLOW; NITRITE,URINE NEGATIVE (NEG); PH,URINE 6.5; PROTEIN,URINE NEGATIVE (NEG-TRACE)
[2019-11-02] MEDS ORDERED: ONDANSETRON PF 4 MG/2 ML VIAL. IV ONE (08:15)
--- NOTE | 2019-11-02 08:16 | PHYS DOC ---
Past Medical History Past Medical History: Anxiety, Depression Past Surgical History: Other Additional Past Surgical Histo: surgical , oral surgery, right ankle fracture repair Alcohol Use: Occasionally Drug Use: None Adult General Chief Complaint Chief Complaint: NAUSEA/VOMITING/DIARRHA HPI HPI Patient is a 23 year old female patient with history of anxiety and depression who presents with complained of nausea and vomiting and diarrhea. She complaining of 6 episodes of vomiting and 2 or 3 episodes of diarrhea per day that started 3 days ago with lower abdominal cramping pain during episodes of bowel movement without fever and chills, urinary symptoms, vaginal bleeding or discharge, chest pain, shortness of breath. Patient had sick contacts at home. Patient is A3 and he states her LMP was September 13 and had negative home test 1 month ago. Review of Systems Review of Systems Constitutional: Denies fever or chills [] Eyes: Denies change in visual acuity, redness, or eye pain [] HENT: Denies nasal congestion or sore throat [] Respiratory: Denies cough or shortness of breath [] Cardiovascular: No additional information not addressed in HPI [] GI: Reports abdominal pain, nausea, vomiting, diarrhea [] : Denies dysuria or hematuria [] Musculoskeletal: Denies back pain or joint pain [] Integument: Denies rash or skin lesions [] Neurologic: Denies headache, focal weakness or sensory changes [] Endocrine: Denies polyuria or polydipsia [] All other systems were reviewed and found to be within normal limits, except as documented in this note. Current Medications Current Medications Current Medications Medications (Trade) Dose Ordered Sig/Marcia Start Time Stop Time Status Last Admin Dose Admin Ondansetron HCl (Zofran) 4 mg 1X ONCE 11/02/19 08:15 11/02/19 08:16 DC 11/02/19 08:20 4 MG Sodium Chloride 1,000 ml @ 1,000 mls/hr Q1H 11/02/19 08:10 11/02/19 09:09 DC 11/02/19 08:20 1,000 MLS/HR Allergies Allergies Allergies Coded Allergies Type Severity Reaction Last Updated Verified No Known Drug Allergies 04/25/14 No Physical Exam Physical Exam Constitutional: Well developed, well nourished, no acute distress, non-toxic appearance. [] HENT: Normocephalic, atraumatic, bilateral external ears normal, oropharynx moist, no oral exudates, nose normal. [] Eyes: PERRLA, EOMI, conjunctiva normal, no discharge. [] Neck: Normal range of motion, no tenderness, supple, no stridor. [] Cardiovascular:Heart rate regular rhythm, no murmur [] Lungs & Thorax: Bilateral breath sounds clear to auscultation [] Abdomen: Bowel sounds normal, soft, no tenderness, no masses, no pulsatile masses. [] Skin: Warm, dry, no erythema, no rash. [] Back: No tenderness, no CVA tenderness. [] Extremities: No tenderness, no cyanosis, no clubbing, ROM intact, no edema. [] Neurologic: Alert and oriented X 3, normal motor function, normal sensory function, no focal deficits noted. [] Psychologic: Affect normal, judgement normal, mood normal. [] Current Patient Data Vital Signs Vital Signs Date Time Temp Pulse Resp B/P (MAP) Pulse Ox O2 Delivery O2 Flow Rate FiO2 11/02/19 07:42 98.5 76 20 112/59 (76) 100 Room Air 98.5 Lab Values Laboratory Tests Test 11/02/19 07:49 11/02/19 07:50 11/02/19 08:17 Urine Collection Type Void Urine Color Yellow Urine Clarity Hazy Urine pH 6.5 Urine Specific [place] 1.025 Urine Protein Negative mg/dL (NEG-TRACE) Urine Glucose (UA) Negative mg/dL (NEG) Urine Ketones (Stick) Negative mg/dL (NEG) Urine Blood Negative (NEG) Urine Nitrite Negative (NEG) Urine Bilirubin Negative (NEG) Urine Urobilinogen Dipstick 1.0 mg/dL (0.2 mg/dL) Urine Leukocyte Esterase Large (NEG) Urine RBC Occ /HPF (0-2) Urine WBC 20-40 /HPF (0-4) Urine Squamous Epithelial Cells Many /LPF Urine Bacteria Moderate /HPF (0-FEW) Urine Mucus Marked /LPF POC Urine HCG, Qualitative Hcg positive (Negative) White Blood Count 8.7 x10^3/uL (4.0-11.0) Red Blood Count 4.61 x10^6/uL (3.50-5.40) Hemoglobin 13.2 g/dL (12.0-15.5) Hematocrit 40.4 % (36.0-47.0) Mean Corpuscular Volume 88 fL (79-100) Mean Corpuscular Hemoglobin 29 pg (25-35) Mean Corpuscular Hemoglobin Concent 33 g/dL (31-37) Red Cell Distribution Width 15.4 % (11.5-14.5) H Platelet Count 283 x10^3/uL (140-400) Neutrophils (%) (Auto) 71 % (31-73) Lymphocytes (%) (Auto) 21 % (24-48) L Monocytes (%) (Auto) 7 % (0-9) Eosinophils (%) (Auto) 1 % (0-3) Basophils (%) (Auto) 1 % (0-3) Neutrophils # (Auto) 6.2 x10^3/uL (1.8-7.7) Lymphocytes # (Auto) 1.8 x10^3/uL (1.0-4.8) Monocytes # (Auto) 0.6 x10^3/uL (0.0-1.1) Eosinophils # (Auto) 0.1 x10^3/uL (0.0-0.7) Basophils # (Auto) 0.1 x10^3/uL (0.0-0.2) Sodium Level 137 mmol/L (136-145) Potassium Level 3.6 mmol/L (3.5-5.1) Chloride Level 103 mmol/L (98-107) Carbon Dioxide Level 23 mmol/L (21-32) Anion Gap 11 (6-14) Blood Urea Nitrogen 5 mg/dL (7-20) L Creatinine 0.5 mg/dL (0.6-1.0) L Estimated GFR (Cockcroft-Gault) 183.4 BUN/Creatinine Ratio 10 (6-20) Glucose Level 83 mg/dL (70-99) Calcium Level 8.6 mg/dL (8.5-10.1) Total Bilirubin 0.4 mg/dL (0.2-1.0) Aspartate Amino Transferase (AST) 9 U/L (15-37) L Alanine Aminotransferase (ALT) 8 U/L (14-59) L Alkaline Phosphatase 68 U/L (46-116) Total Protein 7.5 g/dL (6.4-8.2) Albumin 3.7 g/dL (3.4-5.0) Albumin/Globulin Ratio 1.0 (1.0-1.7) Lipase 69 U/L (73-393) L Laboratory Tests 11/02/19 08:17 Laboratory Tests 11/02/19 08:17 EKG EKG [] Radiology/Procedures Radiology/Procedures [] Course & Med Decision Making Course & Med Decision Making Pertinent Labs reviewed. (See chart for details) Evaluation of patient in ER showed 23-year-old female patient with complaining of nausea and vomiting and diarrhea and crampy abdominal pain. Patient had positive test in ER and treated with IV fluid and Zofran with improvement of her condition. CBC and CMP was unremarkable. UA showed UTI. Plan discharge patient home with diagnosis of viral gastroenteritis, and UTI. Patient was advised to follow-up with ENVIRONMENTAL GEOLOGIST and take liquid diet today. Dragon Disclaimer Dragon Disclaimer This electronic medical record was generated, in whole or in part, using a voice recognition dictation system. Departure Departure Impression: Primary Impression: Acute gastroenteritis Additional Impressions: UTI (urinary tract infection) Positive urine test Disposition: HOME, SELF-CARE (at 09) Condition: IMPROVED Referrals: NO PCP (PCP) RAIMUNDO ESCOBAR Jr, MD Patient Instructions: ABCs of , - Urinary Tract Infection, Viral Gastroenteritis Additional Instructions: Drink plenty of liquids Follow-up with your ENVIRONMENTAL GEOLOGIST physician in 3-5 days Return to ER if not getting better Do not eat solid food today Scripts Ondansetron Hcl (ZOFRAN) 4 Mg Tablet 1 TAB PO PRN Q6-8HRS for nausea, #12 TAB Prov: MANOHAR BERNSTEIN MD 11/02/19 Cephalexin (KEFLEX) 500 Mg Capsule 1 CAP PO Q8HRS, #21 CAP 0 Refills Prov: MANOHAR BERNSTEIN MD 11/02/19 Problem Qualifiers Additional Impressions: UTI (urinary tract infection) Urinary tract infection type: site unspecified Hematuria presence: without hematuria Qualified Codes: N39.0 - Urinary tract infection, site not specified MANOHAR BERNSTEIN MD Nov 02, 2019 08:16
[2019-11-02 08:24] LABS: BASO # 0.1 x10^3/uL (0.0-0.2); BASO % 1 % (0-3); EOS # 0.1 x10^3/uL (0.0-0.7); EOS % 1 % (0-3); HEMATOCRIT 40.4 % (36.0-47.0); HEMOGLOBIN 13.2 g/dL (12.0-15.5); LYMPH # 1.8 x10^3/uL (1.0-4.8); LYMPH % 21 % (24-48); MEAN CORPUSCULAR HEMOGLOBIN 29 pg (25-35); MEAN CORPUSCULAR HGB CONC 33 g/dL (31-37); MEAN CORPUSCULAR VOLUME 88 fL (79-100); MONO # 0.6 x10^3/uL (0.0-1.1); MONO % 7 % (0-9); NEUT # 6.2 x10^3/uL (1.8-7.7); NEUT % 71 % (31-73); PLATELET COUNT 283 x10^3/uL (140-400); RED BLOOD COUNT 4.61 x10^6/uL (3.50-5.40); RED CELL DISTRIBUTION WIDTH 15.4 % (11.5-14.5); WHITE BLOOD COUNT 8.7 x10^3/uL (4.0-11.0)
[2019-11-02 08:30] LABS: BACTERIA,URINE MODERATE /HPF (0-FEW); CLARITY,URINE HAZY; RBC,URINE OCC /HPF (0-2); SQUAMOUS EPITHELIAL CELL,UR MANY /LPF; WBC,URINE 20-40 /HPF (0-4)
[2019-11-02 08:34] LABS: CALCIUM 8.6 mg/dL (8.5-10.1); CREATININE 0.5 mg/dL (0.6-1.0); GFR 183.4; POTASSIUM 3.6 mmol/L (3.5-5.1)
[2019-11-02 08:39] LABS: ALBUMIN 3.7 g/dL (3.4-5.0); TOTAL BILIRUBIN 0.4 mg/dL (0.2-1.0); TOTAL PROTEIN 7.5 g/dL (6.4-8.2)
[2019-11-02] MEDS ORDERED: CEPH-264 PO (09:09)
[2019-11-02] MEDS ORDERED: ONDA4TAB7 PO (09:09)
[2019-11-02 09:30] VITALS: BP 108/56
== END 2019-11-02 09:34 | disposition home or self-care (01) ==
LOC: ER 07:30
DX: N39.0 Urinary tract infection, site not specified (principal); K52.9 Noninfective gastroenteritis and colitis, unspecified; Z33.1 Pregnant state, incidental
CPT/HCPCS: 36415; 80053; 81001; 81025; 83690; 85025; 87086; 96361; 96374; 99284; J2405; J7030

== ENCOUNTER → 2020-02-09 | Outpatient (CLI) | payer OTHER, MEDICAID ==
[~2020-02-09] MED LIST changes: +ONDA4TAB7 PO
--- NOTE | 2020-02-09 15:53 | RAD ---
OB ultrasound greater than 14 weeks 02/09/2020 Clinical History: size in consistent with dates on physical exam. The estimated date of delivery based on the patient's LMP (clinical age of 21 weeks 2 days) is 06/19/2020. Technique: A real-time ultrasound examination of the gravid uterus was performed. Multiple images were obtained. Findings: No previous imaging studies are available for comparison. There is a single living IUP. The fetus is in a cephalic position. cardiac and somatic activity is seen. The heart rate is 145 beats per minutes. The maternal cervix is closed. It measures 4 cm in length. The placenta is anterior. No abnormality is seen. The amniotic fluid volume is within normal limits. Neither maternal ovary is visualized. The following measurements were obtained: BPD 5.02cm 21 weeks 1 days HC 18.72 cm 21weeks 0 days AC 15.9 cm 21weeks 0 days FL 3.46 cm 20 weeks 6 days The estimated gestational age by ultrasound is 21 weeks 0 days plus or minus a standard deviation of 10 days. The estimated date of delivery by ultrasound is 06/21/2020. No abnormality is seen. Specifically the stomach, bladder, kidneys, 3 vessel cord and cord insertion, four-chamber heart, cisterna magna, cerebellum, nose/mouth, spine and extremities are well-visualized and within normal limits. Impression: Single living IUP with an estimated gestational age by ultrasound of 21 weeks 0 days +/- a standard deviation of 10 days. The estimated date of delivery by ultrasound is 06/21/2020. Electronically signed by: Fred Pantoja MD (02/09/2020 3:50 PM) [facility] [place]
== END | disposition home or self-care (01) ==
LOC: US 09:09
PROVIDERS: ATTEND Obstetrics & Gynecology
DX: O26.842 Uterine size-date discrepancy, second trimester (principal); Z3A.21 21 weeks gestation of pregnancy
CPT/HCPCS: 76805

== ENCOUNTER 2020-04-07 09:20 | Observation (INO) | payer MEDICAID, OTHER | END 2020-04-07 10:30 | disposition home or self-care (01) | LOC: 3 SO LND 09:20 | PROVIDERS: ADMIT Obstetrics & Gynecology; ATTEND Obstetrics & Gynecology | DX: O36.8130 Decreased fetal movements, third trimester, not applicable or unspecified (principal); Z3A.29 29 weeks gestation of pregnancy | CPT/HCPCS: G0378; G0379 ==

== ENCOUNTER 2020-05-18 17:48 | Observation (INO) | payer MEDICAID ==
[2020-05-18] MEDS ORDERED: IV RINGERS,LACTATED 1000ML 1,000 ML IV SCH (18:14)
[2020-05-18 18:22] LABS: BILIRUBIN,URINE NEGATIVE (NEG); CLARITY,URINE CLEAR; COLOR,URINE YELLOW; NITRITE,URINE NEGATIVE (NEG); PH,URINE 6.5 (<5.0-8.0); PROTEIN,URINE NEGATIVE (NEG-TRACE)
[2020-05-18 18:26] LABS: SQUAMOUS EPITHELIAL CELL,UR MANY /LPF; TRICHOMONAS,URINE PRESENT
[2020-05-18 18:27] LABS: BACTERIA,URINE MODERATE /HPF (0-FEW)
[2020-05-18 18:29] LABS: RBC,URINE OCC /HPF (0-2)
[2020-05-18] MEDS ORDERED: metroNIDAZOLE 500 MG TABLET PO ONE (19:30)
== END 2020-05-18 19:50 | disposition home or self-care (01) ==
LOC: 3 SO LND 17:48
PROVIDERS: ADMIT Obstetrics & Gynecology; ATTEND Obstetrics & Gynecology
DX: O99.89 Other specified diseases and conditions complicating pregnancy, childbirth and the puerperium (principal); M54.5 Low back pain; O26.893 Other specified pregnancy related conditions, third trimester; R42 Dizziness and giddiness; R51 Headache; Z3A.35 35 weeks gestation of pregnancy; Z79.899 Other long term (current) drug therapy
CPT/HCPCS: 81001; 87086; G0378; G0379

== ENCOUNTER 2020-05-29 12:06 | Observation (INO) | payer MEDICAID ==
[~2020-05-29 12:06] MED LIST changes: -ASPI-612 PO; +ASPI-886 PO
[2020-05-29] MEDS ORDERED: IV RINGERS,LACTATED 1000ML 1,000 ML IV SCH (12:17)
[2020-05-29 12:31] LABS: BILIRUBIN,URINE NEGATIVE (NEG); CLARITY,URINE CLEAR; COLOR,URINE YELLOW; NITRITE,URINE NEGATIVE (NEG); PROTEIN,URINE NEGATIVE (NEG-TRACE); UROBILINOGEN,URINE 0.2 mg/dL (0.2 mg/dL)
[2020-05-29 12:43] LABS: SQUAMOUS EPITHELIAL CELL,UR FEW /LPF
[2020-05-29 12:44] LABS: BACTERIA,URINE FEW /HPF (0-FEW); RBC,URINE 0 /HPF (0-2)
--- NOTE | 2020-05-29 13:25 | RAD ---
Examination: BIOPHYS PROFILE W/O NON STRESS History: Reason: irreg heart rate bpp / Spl. Instructions: / History: Comparison/Correlation: 02/09/2020 Obstetric ultrasound exam Findings: Limited OB ultrasound exam was performed. breathing movement: 2/2 motion: 2/2 tone: 2/2 Amniotic fluid volume 2/2 Anterior placental location is present. Cephalic lie noted with 127 bpm heart rate. Biparietal diameter of 8.96 cm corresponding to 36 weeks 2 days Head circumference of 32.32 cm corresponds to 36 weeks 4 days Abdominal circumference of 32.877 year corresponds to 36 weeks 5 days Femur length of 7.28 cm corresponding to 37 weeks 2 days Estimated weight is 3040 g +/- 4 150 g Ultrasound EDC of 06/21/2020 is noted. Average ultrasound age is 36 weeks 5 days. Impression: Single living intrauterine gestation with biophysical profile score of 8/8. Average no sonographic age of 36 weeks 5 days. Electronically signed by: Jamel London MD (05/29/2020 1:22 PM) [id number]
== END 2020-05-29 15:31 | disposition home or self-care (01) ==
LOC: 3 SO LND 12:06
PROVIDERS: ADMIT Obstetrics & Gynecology; ATTEND Obstetrics & Gynecology
DX: O26.893 Other specified pregnancy related conditions, third trimester (principal); Z3A.36 36 weeks gestation of pregnancy
CPT/HCPCS: 76819; 81001; 87086; G0378; G0379; 59025; 87077

== ENCOUNTER 2020-06-01 16:55 | Observation (INO) | payer MEDICAID ==
[~2020-06-01 16:55] MED LIST changes: +ASPI-612 PO; -ASPI-886 PO
[2020-06-01] MEDS ORDERED: IV RINGERS,LACTATED 1000ML 1,000 ML IV PRN (17:15)
[2020-06-01 17:38] LABS: BILIRUBIN,URINE NEGATIVE (NEG); CLARITY,URINE CLEAR; COLOR,URINE YELLOW; NITRITE,URINE NEGATIVE (NEG); PH,URINE 6.5 (<5.0-8.0); PROTEIN,URINE NEGATIVE (NEG-TRACE); UROBILINOGEN,URINE 0.2 mg/dL (0.2 mg/dL)
[2020-06-01 17:48] LABS: BACTERIA,URINE 0 /HPF (0-FEW); RBC,URINE OCC /HPF (0-2); SQUAMOUS EPITHELIAL CELL,UR MOD /LPF; WBC,URINE OCC /HPF (0-4)
== END 2020-06-01 19:03 | disposition home or self-care (01) ==
LOC: 3 SO LND 16:55
PROVIDERS: ADMIT Obstetrics & Gynecology; ATTEND Obstetrics & Gynecology
DX: O26.893 Other specified pregnancy related conditions, third trimester (principal); R10.30 Lower abdominal pain, unspecified; Z3A.37 37 weeks gestation of pregnancy
CPT/HCPCS: 81001; 87086; G0378; G0379

== ENCOUNTER 2020-06-05 10:33 | Observation (INO) | payer MEDICAID ==
[2020-06-05] MEDS ORDERED: IV RINGERS,LACTATED 1000ML 1,000 ML IV PRN (12:15)
--- NOTE | 2020-06-05 14:19 | RAD ---
Limited OB ultrasound and biophysical profile INDICATION: Irregular heart rate. TECHNIQUE: Sonographic evaluation of breathing movements, motion, tone and measurement of amniotic fluid volume was performed over an approximate 20 minute period. FINDINGS: Feeding breathing movement score of 2 motion score of 2 tone score of 2 Amniotic fluid volume score of 0; BRAYDEN measured 1.6 cm. Single live intrauterine gestation with a heart rate of 127 bpm cephalic presentation is seen. Placenta is anterior. IMPRESSION: Biophysical profile score 6 of 8, with low amniotic fluid volume. Electronically signed by: Alma Girard MD (06/05/2020 2:16 PM) [id number]
== END 2020-06-05 14:15 | disposition home or self-care (01) ==
LOC: 3 SO LND 10:33
PROVIDERS: ADMIT Obstetrics & Gynecology; ATTEND Obstetrics & Gynecology
DX: O26.893 Other specified pregnancy related conditions, third trimester (principal); Z3A.38 38 weeks gestation of pregnancy
CPT/HCPCS: 76815; 76819; G0378; G0379; 59025

== ENCOUNTER 2020-06-06 14:28 | Inpatient (IN) | payer MEDICAID ==
[~2020-06-06] VITALS: Ht 170.2 cm; Wt 103.4 kg
[~2020-06-06 14:28] MED LIST changes: -ASPI-612 PO; +ASPI-886 PO
[2020-06-06] MEDS ORDERED: IV RINGERS,LACTATED 1000ML 1,000 ML IV SCH (14:39)
[2020-06-06] MEDS ORDERED: LIDOCAINE 1% PF 30 ML VIAL. INJ PRN (14:45)
[2020-06-06] MEDS ORDERED: BUTORPHANOL 2 MG/ML VIAL. IVP PRN ×2 (14:45)
[2020-06-06] MEDS ORDERED: 0.9 % SODIUM CHLORIDE 10 ML DISP.SYRIN. IV PRN (14:45)
[2020-06-06] MEDS ORDERED: TERBUTALINE 1 MG/ML VIAL. SQ PRN (14:45)
[2020-06-06] MEDS ORDERED: fentaNYL PF VIAL 100 MCG/2 ML VIAL IVP PRN (14:45)
[2020-06-06] MEDS ORDERED: OXYTOCIN 30 UNIT/500 ML PREMIX 500 ML IV PRN ×2 (14:45)
[2020-06-06] MEDS ORDERED: AMPICILLIN SODIUM 2 GM in IV NORMAL SALINE 100ML 100 ML IV ONE (15:00)
[2020-06-06 15:02] LABS: BILIRUBIN,URINE NEGATIVE (NEG); CLARITY,URINE CLEAR; COLOR,URINE YELLOW; NITRITE,URINE NEGATIVE (NEG); PROTEIN,URINE NEGATIVE (NEG-TRACE); UROBILINOGEN,URINE 0.2 mg/dL (0.2 mg/dL)
[2020-06-06 15:10] VITALS: BP 102/49
[2020-06-06 15:12] LABS: BACTERIA,URINE FEW /HPF (0-FEW); SQUAMOUS EPITHELIAL CELL,UR MOD /LPF; TRICHOMONAS,URINE PRESENT
[2020-06-06 15:38] LABS: BASO % 0 % (0-3); EOS # 0.1 x10^3/uL (0.0-0.7); EOS % 1 % (0-3); HEMOGLOBIN 9.5 g/dL (12.0-15.5); LYMPH # 1.8 x10^3/uL (1.0-4.8); LYMPH % 20 % (24-48); MEAN CORPUSCULAR HEMOGLOBIN 25 pg (25-35); MEAN CORPUSCULAR HGB CONC 33 g/dL (31-37); MEAN CORPUSCULAR VOLUME 75 fL (79-100); MONO # 0.7 x10^3/uL (0.0-1.1); MONO % 8 % (0-9); NEUT # 6.5 x10^3/uL (1.8-7.7); NEUT % 71 % (31-73); PLATELET COUNT 269 x10^3/uL (140-400); RED BLOOD COUNT 3.86 x10^6/uL (3.50-5.40); RED CELL DISTRIBUTION WIDTH 14.9 % (11.5-14.5); WHITE BLOOD COUNT 9.1 x10^3/uL (4.0-11.0)
[2020-06-06] MEDS ORDERED: DINOPROSTONE 10 MG SUPP.VAG VG ONE (18:30)
[2020-06-06] MEDS ORDERED: AMPICILLIN SODIUM 1 GM in IV NORMAL SALINE 50ML 50 ML IV SCH (19:00)
[2020-06-06] MEDS ORDERED: metroNIDAZOLE 500 MG TABLET PO ONE (20:00)
[2020-06-07] MEDS: ONDANSETRON PF 4 MG/2 ML VIAL. IVP PRN ×2 (05:54→14:02)
[2020-06-07] MEDS: fentaNYL PF VIAL 100 MCG/2 ML VIAL IVP PRN ×2 (11:13→13:41)
--- NOTE | 2020-06-07 14:43 | PDOC ---
GENERAL General: 24 yrs old Lady 38 weeks Admitted for Induction and Vaginal Delivery due to Oligohydramnios and Feta Cardiac Arrhythmias. VITAL SIGNS Vital Signs/I&O: Vital Signs Date Time Temp Pulse Resp B/P (MAP) Pulse Ox O2 Delivery O2 Flow Rate FiO2 06/07/20 13:41 Room Air 06/07/20 04:07 18 06/06/20 15:10 98.5 88 102/49 (66) 97 98.5 ALLERGIES Allergies: Allergies Coded Allergies Type Severity Reaction Last Updated Verified No Known Drug Allergies 04/25/14 No MEDS Medications: Current Medications Medications (Trade) Dose Ordered Sig/Marcia Route PRN Reason Start Time Stop Time Status Last Admin Dose Admin Butorphanol Tartrate (Stadol) 2 mg PRN Q1HR PRN IVP Severe labor pain 06/06/20 14:45 06/07/20 04:07 Fentanyl Citrate (Fentanyl 2ml Vial) 100 mcg PRN Q30MIN PRN IVP Severe pain 06/06/20 14:45 06/07/20 13:41 Ampicillin Sodium 2 gm/Sodium Chloride 100 ml @ 200 mls/hr 1X ONCE IV 06/06/20 15:00 06/06/20 15:29 DC 06/07/20 08:52 Ampicillin Sodium 1 gm/Sodium Chloride 50 ml @ 100 mls/hr Q4H IV 06/06/20 19:00 06/07/20 12:36 Dinoprostone (Cervidil) 10 mg 1X ONCE VG 06/06/20 18:30 06/06/20 18:31 DC 06/06/20 18:37 Metronidazole (Flagyl) 2,000 mg 1X ONCE PO 06/06/20 20:00 06/06/20 20:01 DC 06/06/20 21:19 Ondansetron HCl (Zofran) 4 mg PRN Q6HRS PRN IVP NAUSEA/VOMITING 1ST CHOICE 06/07/20 06:00 06/07/20 14:02 LAB Lab: Laboratory Tests Test 06/06/20 14:50 06/06/20 15:24 06/06/20 15:30 Urine Collection Type Unknown Urine Color Yellow Urine Clarity Clear Urine pH 7.0 (<5.0-8.0) Urine Specific [place] 1.010 (1.000-1.030) Urine Protein Negative mg/dL (NEG-TRACE) Urine Glucose (UA) Negative mg/dL (NEG) Urine Ketones (Stick) Negative mg/dL (NEG) Urine Blood Negative (NEG) Urine Nitrite Negative (NEG) Urine Bilirubin Negative (NEG) Urine Urobilinogen Dipstick 0.2 mg/dL (0.2 mg/dL) Urine Leukocyte Esterase Moderate (NEG) Urine RBC 1-2 /HPF (0-2) Urine WBC 5-10 /HPF (0-4) Urine Squamous Epithelial Cells Mod /LPF Urine Bacteria Few /HPF (0-FEW) Urine Trichomonas Present White Blood Count 9.1 x10^3/uL (4.0-11.0) Red Blood Count 3.86 x10^6/uL (3.50-5.40) Hemoglobin 9.5 g/dL (12.0-15.5) L Hematocrit 29.0 % (36.0-47.0) L Mean Corpuscular Volume 75 fL (79-100) L Mean Corpuscular Hemoglobin 25 pg (25-35) Mean Corpuscular Hemoglobin Concent 33 g/dL (31-37) Red Cell Distribution Width 14.9 % (11.5-14.5) H Platelet Count 269 x10^3/uL (140-400) Neutrophils (%) (Auto) 71 % (31-73) Lymphocytes (%) (Auto) 20 % (24-48) L Monocytes (%) (Auto) 8 % (0-9) Eosinophils (%) (Auto) 1 % (0-3) Basophils (%) (Auto) 0 % (0-3) Neutrophils # (Auto) 6.5 x10^3/uL (1.8-7.7) Lymphocytes # (Auto) 1.8 x10^3/uL (1.0-4.8) Monocytes # (Auto) 0.7 x10^3/uL (0.0-1.1) Eosinophils # (Auto) 0.1 x10^3/uL (0.0-0.7) Basophils # (Auto) 0.0 x10^3/uL (0.0-0.2) Treponema pallidum Antibody Nonreactive (Nonreactive) Coronavirus (COVID-19)(PCR) Negative (NEGATIVE) Laboratory Tests 06/06/20 15:24 ASSESSMENT & PLAN A&P Cervidil inserted on 06/06/20. Induction with Pitocin done today. Justicifation of Admission Dx: Justifications for Admission: Justification of Admission Dx: Yes SALVADOR MCGRAW MD Jun 07, 2020 14:43
[2020-06-07] MEDS ORDERED: ZOLPIDEM 5 MG TABLET. PO PRN (14:45)
[2020-06-07] MEDS ORDERED: SIMETHICONE 80 MG TAB.CHEW PO PRN (14:45)
[2020-06-07] MEDS ORDERED: DOCUSATE SODIUM 100 MG CAPSULE. PO PRN (14:45)
[2020-06-07] MEDS ORDERED: TDaP (Adacel) per PROTOCOL. MC PRN (14:45)
[2020-06-07] MEDS ORDERED: MAGNESIUM HYDROXIDE 2,400 MG/30 ML ORAL.SUSP. PO PRN (14:45)
[2020-06-07] MEDS ORDERED: MMR per PROTOCOL. MC PRN (14:45)
[2020-06-07] MEDS ORDERED: diphenhydrAMINE HCL 25 MG CAPSULE PO PRN (14:45)
[2020-06-07] MEDS ORDERED: MAG HYDROX/ALUMINUM HYD/SIMETH 30 ML ORAL.SUSP PO PRN (14:45)
[2020-06-07] MEDS ORDERED: PHENYLEPH/MINERAL OIL/PETROLAT RECTAL OINTMENT TUBE. RC PRN (14:45)
--- NOTE | 2020-06-07 15:17 | PDOC ---
VITAL SIGNS Vital Signs/I&O: Vital Signs Date Time Temp Pulse Resp B/P (MAP) Pulse Ox O2 Delivery O2 Flow Rate FiO2 06/07/20 13:41 Room Air 06/07/20 04:07 18 06/06/20 15:10 98.5 88 102/49 (66) 97 98.5 ALLERGIES Allergies: Allergies Coded Allergies Type Severity Reaction Last Updated Verified No Known Drug Allergies 04/25/14 No MEDS Medications: Current Medications Medications (Trade) Dose Ordered Sig/Marcia Route PRN Reason Start Time Stop Time Status Last Admin Dose Admin Ampicillin Sodium 1 gm/Sodium Chloride 50 ml @ 100 mls/hr Q4H IV 06/06/20 19:00 06/07/20 12:36 Dinoprostone (Cervidil) 10 mg 1X ONCE VG 06/06/20 18:30 06/06/20 18:31 DC 06/06/20 18:37 Metronidazole (Flagyl) 2,000 mg 1X ONCE PO 06/06/20 20:00 06/06/20 20:01 DC 06/06/20 21:19 Ondansetron HCl (Zofran) 4 mg PRN Q6HRS PRN IVP NAUSEA/VOMITING 1ST CHOICE 06/07/20 06:00 06/07/20 14:02 LAB Lab: Laboratory Tests Test 06/06/20 15:24 06/06/20 15:30 White Blood Count 9.1 x10^3/uL (4.0-11.0) Red Blood Count 3.86 x10^6/uL (3.50-5.40) Hemoglobin 9.5 g/dL (12.0-15.5) L Hematocrit 29.0 % (36.0-47.0) L Mean Corpuscular Volume 75 fL (79-100) L Mean Corpuscular Hemoglobin 25 pg (25-35) Mean Corpuscular Hemoglobin Concent 33 g/dL (31-37) Red Cell Distribution Width 14.9 % (11.5-14.5) H Platelet Count 269 x10^3/uL (140-400) Neutrophils (%) (Auto) 71 % (31-73) Lymphocytes (%) (Auto) 20 % (24-48) L Monocytes (%) (Auto) 8 % (0-9) Eosinophils (%) (Auto) 1 % (0-3) Basophils (%) (Auto) 0 % (0-3) Neutrophils # (Auto) 6.5 x10^3/uL (1.8-7.7) Lymphocytes # (Auto) 1.8 x10^3/uL (1.0-4.8) Monocytes # (Auto) 0.7 x10^3/uL (0.0-1.1) Eosinophils # (Auto) 0.1 x10^3/uL (0.0-0.7) Basophils # (Auto) 0.0 x10^3/uL (0.0-0.2) Treponema pallidum Antibody Nonreactive (Nonreactive) Coronavirus (COVID-19)(PCR) Negative (NEGATIVE) Laboratory Tests 06/06/20 15:24 ASSESSMENT & PLAN A&P Delivered an Alive Female baby 6lbs 10 oz Spontaneous Vaginal Delivery. EBL 200cc. Baby Apgars 8/9/9. Justicifation of Admission Dx: Justifications for Admission: Justification of Admission Dx: Yes SALVADOR MCGRAW MD Jun 07, 2020 15:17
[2020-06-07] MEDS: IBUPROFEN 400 MG TABLET. PO PRN ×2 (15:42→21:50)
--- NOTE | 2020-06-07 15:52 | LDN ---
DATE OF DELIVERY: This patient is a 24-year-old female who is a 3, para 2, 38-week , admitted for induction of labor due to oligohydramnios and also cardiac arrhythmia in the heart with the ultrasound. She did have a Maternal consultation and was recommended to deliver. At the time of admission to the hospital, cervix was dilated to 1 cm and the patient admitted first and Cervidil was given and the next morning oxytocin was started, Pitocin induction and she did have a good progress of labor, got to complete dilatation, spontaneous rupture of membranes. Alive female infant weighing 6 pound 10 ounce was delivered at 2:59 hours on 06/07/2020 with the score of 8, 9 and 9 without any problem. There was cord around the neck noted one time, which was released at the time of the delivery of the baby and cord was clamped and cord blood was taken. Placenta removed spontaneous. No hemorrhage noted. She did receive Pitocin after delivered the placenta. The perineum intact. There is no vaginal tears. Baby is referred to supervisor cold rolling for further care and treatment. Mother tolerated the delivery well. No complications at this time. ESTIMATED BLOOD LOSS: 200 mL. SALVADOR MCGRAW MD DR: AMADOR/kati JOB#: [id number] / [id number]
[2020-06-07 17:30] VITALS: BP 117/66
[2020-06-07] MEDS: FERROUS SULFATE 325 MG TABLET. PO SCH (20:07)
[2020-06-07] MEDS: ACETAMINOPHEN 325 MG TABLET. PO PRN (20:07)
[2020-06-07 20:20] VITALS: BP 113/62
[2020-06-08 00:53] VITALS: BP 98/51
[2020-06-08] MEDS: IBUPROFEN 400 MG TABLET. PO PRN ×2 (04:34→16:56)
[2020-06-08 05:00] VITALS: BP 115/74
[2020-06-08] MEDS ORDERED: DIPH,PERTUSS(ACELL),TET VAC/PF 0.5 ML SYRINGE. VAX IM ONE (08:15)
[2020-06-08] MEDS: FERROUS SULFATE 325 MG TABLET. PO SCH ×2 (08:18→17:26)
--- NOTE | 2020-06-08 08:51 | PDOC ---
GENERAL General: Patient doing ok. No Problems. Baby is getting some tests done. VITAL SIGNS Vital Signs/I&O: Vital Signs Date Time Temp Pulse Resp B/P (MAP) Pulse Ox O2 Delivery O2 Flow Rate FiO2 06/08/20 05:00 98.3 80 18 115/74 (88) 97 Room Air 98.3 ALLERGIES Allergies: Allergies Coded Allergies Type Severity Reaction Last Updated Verified No Known Drug Allergies 04/25/14 No MEDS Medications: Current Medications Medications (Trade) Dose Ordered Sig/Marcia Route PRN Reason Start Time Stop Time Status Last Admin Dose Admin Acetaminophen (Tylenol) 650 mg PRN Q6HRS PRN PO MILD PAIN / TEMP > 100.3'F 06/07/20 14:45 06/07/20 20:07 Ferrous Sulfate (Feosol) 325 mg BIDWMEALS PO 06/07/20 17:00 06/08/20 08:18 LAB Lab: Laboratory Tests Test 06/08/20 04:10 Hematocrit 25.6 % (36.0-47.0) L Laboratory Tests 06/08/20 04:10 ASSESSMENT & PLAN A&P Vital signs stable. Abdomen soft. Lochia normal. Will dismiss patient tomorrow morning. Justicifation of Admission Dx: Justifications for Admission: Justification of Admission Dx: Yes SALVADOR MCGRAW MD Jun 08, 2020 08:50
[2020-06-08 10:20] VITALS: BP 108/70
--- NOTE | 2020-06-08 16:08 | NUR ---
SS following up with referral regarding infant meconium positive for THC. SS reviewed and mother chart and discussed with RN. SS was notified that mother reports using Marijuana 2x during her . Mother UDS was negative. SS met with mother. Mother reported that she lives with her mother and family. Mother reported that father of baby does not live with them. Mother reported that she has good family support and transportation. Mother reported that infant will see Dr. Townsend for pediatric needs. Mother reported having Medicaid and WIC services. Mother admitted to Marijuana use during . Mother reported that she has all needed supplies for to include car seat. Mother reported that family will watch while she works. Mother requested prescription for breast pump. RN notified. RN reported that mother has been bonding well with and appropriate. DCF hotline report made for positive Marijuana in meconium. Intake# [id number]. SS will continue to follow as needed.
[2020-06-08 17:34] VITALS: BP 123/80
[2020-06-08 23:56] VITALS: BP 109/72
[2020-06-09] MEDS: IBUPROFEN 400 MG TABLET. PO PRN ×2 (01:34→07:59)
[2020-06-09] MEDS: ACETAMINOPHEN 325 MG TABLET. PO PRN (05:44)
[2020-06-09 05:48] VITALS: BP 119/76
[2020-06-09] MEDS: FERROUS SULFATE 325 MG TABLET. PO SCH (07:59)
--- NOTE | 2020-06-09 08:36 | PDOC ---
GENERAL General: Patient has no problems. Likes to go home. VITAL SIGNS Vital Signs/I&O: Vital Signs Date Time Temp Pulse Resp B/P (MAP) Pulse Ox O2 Delivery O2 Flow Rate FiO2 06/09/20 05:48 97.7 78 16 119/76 (90) 95 Room Air 97.7 ALLERGIES Allergies: Allergies Coded Allergies Type Severity Reaction Last Updated Verified No Known Drug Allergies 04/25/14 No ASSESSMENT & PLAN A&P Vital signs stable. Lochia Normal. Return to office in 6 weeks. Justicifation of Admission Dx: Justifications for Admission: Justification of Admission Dx: Yes SALVADOR MCGRAW MD Jun 09, 2020 08:36
--- NOTE | 2020-06-09 09:25 | NUR ---
Discharge instructions given to pt. Pt verbalized understanding and denied questions. Pt discharged home.
[2020-06-09 09:45] VITALS: BP 129/83
--- NOTE | 2020-06-15 10:49 | HP ---
ADMIT DATE: 06/06/2020 HISTORY OF PRESENT ILLNESS: This patient is a 24-year-old female who is a 3, para 2, 38-week , came into the hospital with a history of contractions and also for nonstress test and it was seen according to the patient's history the baby has cardiac arrhythmia and also her previous sonogram shows less amniotic fluid and the stress test was done and she was sent to maternal consultation because of oligohydramnios. PHYSICAL EXAMINATION: VITAL SIGNS: Being stable. HEAD, EYES, NOSE, AND THROAT: Within normal limits. ABDOMEN: A 38-week . Vertex presenting. heart tones are about 142 per minute. PELVIC: Shows external genitalia being normal. Cervical os is about 1 cm dilated, the presenting part is high. Membranes intact. No vaginal bleeding. EXTREMITIES: No edema of feet. IMPRESSION: 3, para 2, oligohydramnios and arrhythmia, nonreassuring heart tones. PLAN: Maternal specialist consultation and after that we will proceed with the treatment, probable induction and vaginal delivery. SALVADOR MCGRAW MD DR: AMADOR/kati JOB#: [id number] / [id number]
--- NOTE | 2020-07-04 16:58 | DS ---
DATE OF DISCHARGE: 06/09/2020 SUBJECTIVE: This patient is a 24-year-old female who is 3, para 2, 38-week , came into the hospital with a history of contractions and also for nonstress test and it was seen according to the patient's history, the baby has cardiac arrhythmia and also her previous sonogram shows less amniotic fluid and the stress test was done and she was sent to Maternal consultation because of oligohydramnios. She was seen by the Maternal specialist and was recommended that she should be delivered because of the oligohydramnios and also cardiac arrhythmia in the fetus and the patient was admitted to the hospital for induction and delivery. OBJECTIVE: VITAL SIGNS: Stable. HEAD, EYES, EARS, NOSE, THROAT: Normal. ABDOMEN: A 38-week . Vertex presenting. heart tones are about 140 per minute. PELVIC: Shows external genitalia normal. Cervical os about 1 cm dilated, presenting part is high. Membranes intact. No vaginal bleeding. EXTREMITIES: No edema of feet. HOSPITAL COURSE: She did have induction of labor with Cervidil and followed by Pitocin the next day and she did have a good augmentation of labor and had spontaneous vaginal delivery without any problems. The patient was dismissed to home care on 06/09/2020 with the advice to come back to the office in 6 weeks for further care and treatment. DIAGNOSES: 3, para 2, oligohydramnios, arrhythmia, nonreassuring heart tones. Induction and vaginal delivery was done. PLAN: She will be seen in the office in 6 weeks for care and treatment. SALVADOR MCGRAW MD DR: AMADOR/kati JOB#: [id number] / [id number]
== END 2020-06-09 10:10 | disposition home or self-care (01) | DRG 806 ==
LOC: 3 SO LND 14:28 → 3 NORTH 06-07 16:59
PROVIDERS: ADMIT Obstetrics & Gynecology; ATTEND Obstetrics & Gynecology
PROC: 3E0P7VZ Introduction of Hormone into Female Reproductive, Via Natural or Artificial Opening (ICD-10-PCS; 2020-06-06)
PROC: 3E033VJ Introduction of Other Hormone into Peripheral Vein, Percutaneous Approach (ICD-10-PCS; 2020-06-06)
PROC: 10E0XZZ Delivery of Products of Conception, External Approach (ICD-10-PCS; principal; 2020-06-07)
PROC: 3E0234Z Introduction of Serum, Toxoid and Vaccine into Muscle, Percutaneous Approach (ICD-10-PCS; 2020-06-08)
DX: O76 Abnormality in fetal heart rate and rhythm complicating labor and delivery (principal); O41.03X0 Oligohydramnios, third trimester, not applicable or unspecified; Z37.0 Single live birth; O69.81X0 Labor and delivery complicated by cord around neck, without compression, not applicable or unspecified; Z3A.38 38 weeks gestation of pregnancy; Z23 Encounter for immunization; Z20.828 Contact with and (suspected) exposure to other viral communicable diseases
CPT/HCPCS: 36415; 81001; 85014; 85025; 86592; 86850; 86900; 86901; 87086; 90471; 90715; J0290; J0595; J2405; J2590; J3010; J7120; G0378; U0003-CS